=== PATIENT | female | born 1970 | race Caucasian/White ===

== ENCOUNTER 2021-11-30 00:36 | Day surgery (SDC) | payer BC, SELFPAY ==
[2021-11-23 11:55] VITALS: BMI 28.3
--- NOTE | 2021-11-23 12:02 | PC.NURSE ---
Report to the Outpatient Waiting Room, entrance under the green pavilion located off [facility], at time 0800 on date 11/30/21. OR Time: 1000. Time changes happen often and if your time is changed the preop area will call you the afternoon before. - You and your visitor will be asked to self-screen and do not enter if you have any COVID symptoms. - Only one visitor and NO children visitors are allowed at this time. - The patient visitor is requested to leave or wait in car when not with patient due to restrictions. - A mask is required within the hospital. Patients may have clear liquids (water, carbonated beverages, clear teas, apple juice) until 3 hours prior to surgery with a maximum of 20 ounces. - No food from midnight until time of surgery Take the following medications with a SIP of water the morning of surgery: NONE Medications to discontinue per physician: VITAMINS Date to take last dose: 11/26/21 Please no make-up, nail kazakh, hairspray, perfume, deodorant, or body powder the day of surgery. No jewelry (including any body piercings) or valuables the day of surgery, leave them at home. Please take a shower or bath the night before, or the morning of, surgery with an antibacterial soap. Wear comfortable, loose fitting clothing. - Jewelry must be removed prior to entering the operating room. Rings and piercings that are not removed may be cut off. - The hospital will not accept responsibility for valuables. - Please leave all valuables, including medications, at home the day of surgery. If you are going home after surgery, a licensed heavy truck driver must drive you home. - NO public transportation without another adult. - We recommend that an adult stay with you for 24 hours following discharge. - We also recommend that you do not drive, make important decision, drink alcoholic beverages, or take any drugs that were not prescribed by your health care provider for at least 24 hours after your discharge time. Follow any additional instructions given to you from your surgeon. If you or anyone in your household have experienced Covid symptoms in the past week, please notify your surgeon or the nurse liaison at the phone number below for possible testing. Telephone instructions given to PT - YONATAN PAULA and asked if any additional questions and then verbalized understanding. Patient advised to call surgeon office or pre surgery nurse liaison [phone] if any additional questions.
--- NOTE | 2021-11-29 12:34 | P.PNAN_ITS ---
Anes - Initial Pre Proc Eval Procedure: Operation Date: 11/30/21 10:00 Proposed Procedures p Hysteroscopy with Dee Endometrial Ablation, Laparoscopic Bilateral Salpingectomy, Left Oophorectomy - Nik Amezquita MD Date/Time: 11/29/21 12:34 Surgeon: Nik Amezquita MD Pre Op Diagnosis: menorrhagia Patient Data Age: 51 Gender: F Height: 1.6 m Weight: 72.57 kg Allergies Allergy/AdvReac Type Severity Reaction Status Date / Time Sulfa (Sulfonamide Allergy Mild HIVES Verified 11/30/21 08:00 Antibiotics) Home Medications Medication Instructions Recorded Confirmed Type multivitamin 1 tablet PO DAILY 11/23/21 11/30/21 History Patient hx anesthesia problems: none Family hx anesthesia problems: none Results Review: All pre-operative results and documents have been reviewed as part of the pre- operative evaluation. [facility] Past Medical History Medical History (Updated 11/29/21 @ 12:35 by Aneudy Jerome MD) Overweight (BMI 25.0-29.9) Social History Social History Smoking status: Never smoker Alcohol intake: current Drinks per week: 2 Substance use: never Substance use type: does not use Living arrangements: with family Spiritual care concerns: No Anes - Eval Final PreProcedure Day of Procedure 11/29/21 12:34 Patient weight: overweight Heart: regular rate and rhythm Lungs: clear to auscultation and normal air movement Airway: Mallampati scale class II Neurological: alert and oriented Last oral intake: >/= 8 hours ASA classification: II Emergent: no Anesthetic plan: proceed Anesthesia type and monitoring: general ETT Results Review: All pre-operative results and documents have been reviewed as part of the pre- operative evaluation. Informed Consent: The patient's anesthetic plan and its attendant risks and benefits were discussed with the patient/family/POA. Questions were solicited and answers provided to the satisfaction of the patient/family/POA.
[2021-11-30] VITALS (11 sets, daily range): BP systolic 100–127; BP diastolic 46–75; PULSE 53–70; RESP 12–18; TEMP 36.2–36.3; O2SAT 94–100
[2021-11-30] MEDS: ACETAMINOPHEN 500 MG TABLET 1000 MG PO (08:21)
[2021-11-30] MEDS: LACTATED RINGERS 1,000 ML 30 ML IV CONT ×2 (08:25→11:10)
[2021-11-30] MEDS: KETOROLAC 15 MG/ML VIAL (*BKC) IV PUSH (08:30)
--- NOTE | 2021-11-30 09:14 | WPDHPUPDATE1 ---
History and Physical Update Update Date/Time: 11/30/21 09:14 History and Physical has been reviewed, including an updated exam of the patient. There are NO changes in the patient's condition. Risks, benefits, and alternatives have been discussed and questions answered. Patient agrees to proceed with procedure.
--- NOTE | 2021-11-30 11:22 | W.PM.PROC2 ---
Procedure Note - Detailed Date of Procedure 11/30/21 Pre-op Diagnosis menorrhagia , pelvic pain Post-op Diagnosis Same Procedure Performed laparoscopic left oophorectomy and bilateral salpingectomy, excision peritoneal nodule of the pelvis. Endometrial ablation with hysteroscopy Surgeon Nik Amezquita MD Anesthesia General Indications Unwanted fertility Findings Normal pelvic anatomy Description of Procedure The patient was taken the operating room. She was prepped and draped in the dorsal lithotomy position after induction of general anesthesia. A 5 mm skin incision was made in the left upper quadrant of the abdominal skin. A 5 mm trocar was inserted the intra-abdominal cavity under direct visualization of the scope. Pneumoperitoneum was achieved. A 5 mm trocar was inserted in the left lower quadrant identical fashion. A 5 mm infraumbilical trocar was inserted in identical fashion as well. The right fallopian tube was removed. This was done by using a LigaSure cautery. The mesosalpinx adjacent to the tube was cauterized transected with LigaSure. This was initiated in the area the ovary and in a stepwise fashion moved medially to the area of the cornu of the uterus. Once there the fallopian tube was cauterized and transected. The left ovary fallopian tube were removed. It was raised and the infundibulopelvic ligament was identified. It was cauterized transected with LigaSure cautery. The mesosalpinx was then cauterized transected in stepwise fashion around to the cornua of the uterus. The fallopian tube was then transected and cauterized at its base Near the cornu of the uterus. The fallopian tubes And ovary were taken out through the left lower quadrant trocar site. A peritoneal nodule on the left uterosacral ligament was removed. It was done with sharp dissection and cautery. The ureter was well away from this area. The pneumoperitoneum was reduced. The trocars removed. The skin was closed with subcuticular 4 Monocryl and covered with Dermabond. Attention was turned to the vaginal portion of the procedure. A speculum was placed the vagina. Cervix grasped with a tenaculum. The hysteroscope was inserted into the intrauterine cavity to the cervix. Measurements were taken. The Endometrial cavity appeared normal. the Dee endometrial ablation device was inserted expanded. The cuff was Inflated. The energy cycles were completed. The cuff was deflated and the device was collapsed and removed. Hysteroscope was reinserted a well cauterized endometrium was observed. Speculum and tenaculum removed. She was taken to cover stable condition. Sponge lap and needle counts were correct x2. Estimated Blood Loss -10.0 Drains No Packing No Pathology Yes Complications No immediate complications Condition Stable Disposition PACU
[2021-11-30] MEDS: fentaNYL CITRATE INJ (*CRX) 100 MCG/2 ML VIAL 25 MCG IV PUSH ×8 (11:25→13:38)
[2021-11-30] MEDS: oxyCODONE HCL (*CRX) 5 MG TAB IR PO (13:12)
== END 2021-11-30 14:20 | disposition home or self-care (01) ==
PROVIDERS: Visit Provider Obstetrics & Gynecology
PROC: 0UDB8ZZ Extraction of Endometrium, Via Natural or Artificial Opening Endoscopic (ICD-10-PCS; CPT 58558; principal; 2021-11-30 10:00)
DX: N92.0 Excessive and frequent menstruation with regular cycle (principal); R10.2 Pelvic and perineal pain; N80.3C2 Endometriosis of the left uterosacral ligament, unspecified depth
CPT/HCPCS: 58661; 58662; 58563; 88304; 88305; A9270; J1100; J1170; J1885; J2250; J2405; J2704; J2710; J3010; J7030; J7120

== ENCOUNTER 2024-09-22 17:50 | Emergency (ER) | payer BC, SELFPAY ==
--- NOTE | 2024-09-22 17:52 | ED_ITS ---
HPI - Dental/Oral General Chief complaint: Dental/Oral Stated complaint: tooth ache Time Seen by Provider: 09/22/24 17:51 Source: patient Mode of arrival: ambulatory Limitations: no limitations History of Present Illness HPI Narrative: Patient is a 54-year-old female presents with left lower dental pain since Monday evening. Patient went to ER yesterday and was prescribed amoxicillin and tramadol. Patient states tramadol is not touching her pain. Denies any fever, chills, nausea, vomiting, diarrhea. States she will call our dentist 1st thing in the morning Related Data Home Medications ?Medication ?Instructions ?Recorded ?Confirmed ?Last Taken ?Type multivitamin 1 tablet PO DAILY 11/23/21 11/30/21 11/26/21 History amoxicillin 500 mg capsule mg 09/22/24 Unknown History progesterone micronized 100 mg mg 09/22/24 Unknown History capsule sertraline 50 mg tablet mg 09/22/24 Unknown History tramadol 50 mg tablet mg 09/22/24 Unknown History Allergies Allergy/AdvReac Type Severity Reaction Status Date / Time Sulfa (Sulfonamide Allergy Mild HIVES Verified 09/22/24 18:00 Antibiotics) Review of Systems Review of Systems: All systems reviewed & are unremarkable except as noted in HPI and below Constitutional: Constitutional: Denies body ache(s), Denies fever(s), Denies headache(s), Denies malaise and Denies weakness Eyes: Eyes: Denies loss of vision ENT: Denies otalgia, Reports facial pain (jaw), Denies headache(s), Denies nasal discharge, Denies sinus pain and Denies sore throat Cardiovascular: Cardiovascular: Denies chest pain, Denies irregular heart rhythm and Denies dyspnea Respiratory: Respiratory: Denies dyspnea Gastrointestinal: Gastrointestinal: Denies abdominal pain, Denies melena, Denies hematochezia, Denies diarrhea, Denies nausea and Denies vomiting Musculoskeletal: Musculoskeletal: Denies back pain, Denies myalgias and Denies arthralgias Integumentary/Breasts: Skin/Breast: Denies pruritus and Denies rash Neurologic: Denies headache(s), Denies loss of vision and Denies weakness Psychiatric: Psychiatric: Reports no additional psychiatric complaints PMFSH Past Medical History Medical History Overweight (BMI 25.0-29.9) Social History Social History Smoking status: Never smoker Alcohol intake: current Drinks per week: 2 Substance use: never Substance use type: does not use Living arrangements: with family Spiritual care concerns: No Comments At time of signature, agree with nursing past medical, surgical, social and family history. There is no relevant family history pertinent to the presenting complaint. Exam Const: General: cooperative, healthy appearing, comfortable, no acute distress and well nourished Nutritional Appearance: well nourished Orientation/consciousness: patient oriented x3 Limitations: no limitations HENMT: Head: normal to inspection, normocephalic and atraumatic Ears: hearing grossly normal bilaterally, external ears normal, TM's normal bilaterally and mastoids normal bilaterally Face/Nose/Sinus: Normal external nose present, normal facial exam and face symmetric Face and sinus: normal facial exam and face symmetric Mouth: Yes Normal oral and palatal mucosa present, Yes lip normal, Yes tongue normal, Yes Normal salivary glands and ducts present and Yes moist mucous membranes Teeth and gingiva: dentition normal and abnormal tooth and associated gingiva lower left second molar tender and with associated gingival edema Other: The tooth in question is very carious and the gum is swollen and tender around it. There is no facial swelling, cervical or submandibular lymphadenopathy. The patient appears uncomfortable and in pain. Eyes: General: appearance normal, both eyes and all related structures Alignment and Position: alignment normal and position normal Periorbital: periorbital findings normal Eyelids: eyelids normal Pupils: Equal, round and reactive pupils present EOM: EOMs intact bilaterally Neck: Neck: normal visual inspection, full ROM, no lymphadenopathy and supple Chest: Chest palpation & inspection: normal inspection of the chest Resp: Effort & Inspection: normal respiratory effort and able to speak in complete sentences Auscultation: clear to auscultation bilaterally Cardio: Rate: regular rate Rhythm: regular rhythm Heart sounds: S1 normal heart sound present and S2 normal heart sound present GI: Inspection: normal to inspection Skin: General skin exam: normal color and no rashes or lesions noted Neuro: General: patient oriented x3 and moves all extremities Cranial nerves: Yes Equal, round and reactive pupils present Speech: normal speech Gait exam (Neuro): Normal gait present Extrem: General: normal to inspection, full ROM and no edema Psych: Appearance: grossly normal and well kempt Mental Status: mental status grossly normal Speech and movement: Normal speech and movement present Affect: normal affect Attitude: cooperative Thought process: Normal thought process present Course Course Emergency Course: Patient is aware of diagnosis, understands and agrees to treatment plan. Anticipatory guidance given. Patient agrees to follow-up as directed and is aware of reasons to seek care at the emergency department. Portions of this record may have been created with voice recognition software Level of Care: Express Care Visit Vital Signs Vital signs: Reviewed MDM - Dental/Oral MDM Narrative Medical decision making narrative: Patients pain and complaint coupled with physical findings are consistant with dentalgia. There are no focal signs of space occupying lesions that are compromising to the airway; no dysphagia, odynophagia, dysphonia, or dyspnea. No uvular deviation or soft palate edema. Patient is non-toxic appearing. The floor of the mouth is soft with no signs of Chase's Angina; no induration below mandible, no neck pain. Patient is without trismus or drooling and able to swallow secretions. Patient is felt appropriate for discharge home with dental follow up. Patient given Toradol injection instructed to continue taking antibiotics and pain medicine that was previously prescribed Differential Diagnosis Differential diagnosis: Likely dental caries, toothache and dental abscess Medical Records Attestation: I reviewed the patient's medical records. Discharge Plan Discharge Clinical Impression: Dental abscess Patient Disposition: Home Condition: Stable Instructions: Dental Abscess (ED) Additional Instructions: Take previously prescribed antibiotic until it's gone. Continue taking tramadol as you were prescribed Brushing teeth at least twice daily with gentle flossing. Avoid temperature extremes---when you eat. Salt gargle to rinse your mouth after every meal You may apply ice to the face to reduce pain/swelling. For pain, you may take: Tylenol 650-1000mg by mouth every 4-6 hours. Do not exceed 4000mg in 24 hours. Advil (Ibuprofen) 600 mg by mouth every 6 hours. Do not exceed 2400mg in 24 hours. 8 AM: Tylenol 11 AM: Ibuprofen 2 PM: Tylenol 5 PM: Ibuprofen 8 PM: Tylenol 11 PM: Ibuprofen 2 AM: Tylenol 5 AM: Ibuprofen Also, recommend regular dental check up one-two times a year to prevent tooth decay and other periodontal disease. Follow-up with the dentist as soon as possible--see the list provided Patient Language: Urdu Prescriptions: No Action multivitamin Tablet 1 tablet PO DAILY hydrocodone-acetaminophen 5-325 mg tablet 1 tablet PO Q4H PRN (Reason: pain) Qty: 14 0RF Follow-up/Referrals: David,MD Vasu [Primary Care Provider] - 3 Days Stand Alone Forms: Work/School Release IP Time of Disposition: 18:12
--- OUTSIDE RECORDS SUMMARY | 2024-09-22 17:53 | XMS_ITS | Encounter Summary ---
Author Organization [facility] Address [facility] [place] [address] Care Team Providers Care Rate Examiner Name Role Phone Nelda Roth EQUIPMENT TECHNICIAN-BC Unavailable + [phone] Vasu Hernandez MD Primary Care Provider [phone] Encounter Details Date Type Department Care Team (Latest Contact Info) Description 09/21/2024 Travel Social History Tobacco Use Types Packs/Day Years Used Date Smoking Tobacco: Never Passive Smoke Exposure: Never Smokeless Tobacco: Never Comments:non smoker Alcohol Use Standard Drinks/Week Comments Yes 3.3 (1 standard drink = 0.6 oz p ure alcohol) Social Connection and Isolat ion Panel [NHANES] Answer Date Recorded In a typical week, how many times do you talk on the phone with family, friends, or neighbors? More than three times a week 11/05/2019 Frequency of Social Gatherin gs with Friends and Family Not on file 11/05/2019 Attends [employer] Services Not on file 11/04 Active Member of Clubs or Organizations Not on f ile 11/05/2019 Attends Club or Organization Meetings Not on manuel e 11/05/2019 Marital Status Not on file 11/05/2019 AUDIT-C Answer Date Recorded Q1: How often do you have a drink containing alc ohol? 2-4 times a month 04/09/2020 Q2: How many drinks containi ng alcohol do you have on a typical day when you are drinking? 1 or 2 04/09/2020 Frequency of Binge Drinking Not on file 03/30 Overall Financial Resource Strain (CARDIA) Answe r Date Recorded How hard is it for you to pa y for the very basics like food, housing, medical care, and heating? Not hard at all 11/05/2019 PHQ-2 Answer Date Recorded Patient Health Questionnaire-2 Score 0 03/06/2024 [facility]at [facility] - Occupational Stress Questionnaire Answer Date Recorded Do you feel stress - tense, restless, nervous, or anxious, or unable to sleep at night because your mind is troubled all the time - these days? Not at all 11/05/2019 Exercise Vital Sign Answer Date Recorde d On average, how many days pe r week do you engage in moderate to strenuous exercise (like a brisk walk)? 5 days 11/05/2019 On average, how many minutes do you engage in exercise at this level? 30 min 11/05/2019 Hunger Vital Sign Answer Date Recorded Within the past 12 months, y ou worried that your food would run out before you got the money to buy more. Never true 11/05/19 20 Within the past 12 months, t he food you bought just didn't last and you didn't have money to get more. Never true 11/05/2019 PRAPARE - Transportation Answer Date Re corded In the past 12 months, has l ack of transportation kept you from medical appointments or from getting medications? No 09/2019 In the past 12 months, has l ack of transportation kept you from meetings, work, or from getting things needed for daily living? No 11/05/2019 Comments No Sex and Gender Information Value Date Recorded Sex Assigned at Female 04/26/2024 11:53 AM CIGARETTE PAPER TESTER Legal Sex Female 6:49 PM CDT Gender Identity Not on file Sexual Orientation Straight 04/07/2021 8: 35 AM CIGARETTE PAPER TESTER documented as of this encounter Functional Status * Calculated C-SSRS Risk Score (Lifetime/Recent) Answer Date of Assessment Author Status No Risk Indicated 09/21/2024 11:14 PM CDT Dixon Aceves RN Active * [place] Suicide Severity Rating Scale (Screener/Recent Self-Report) Question Answer Date of Assessment Author Status 1. Wish to be (Past 1 Month) No 09/21/2024 11:14 PM CDT Viktoriya Aceves RN A ctive 2. Non-Specific Active Suicidal Thoughts (Past 1 Month) No 09/21/2024 11:14 PM CDT Viktoriya Aceves RN A ctive 6. Suicidal Behavior (Lifetime) No 09/21/2024 11:14 PM CDT Viktoriya Aceves RN A ctive documented as of this encounter Plan of Treatment Upcoming Encounters Date Type Department Care Team (Late st Contact Info) Description 11/18/2024 7:00 AM CDT Office Visit [facility] Family & Internal Medicine [facility] [address] [place] [address] [place] [address] [id number] documented as of this encounter Visit Diagnoses Not on filedocumented in this encounter Additional Health Concerns Assessment Noted Time PHQ-9 Depression Total Score: 0 03/06/19 25 12:11 PM CIGARETTE PAPER TESTER documented as of this encounter Care Teams Rate Examiner Relationship Specialty [place] [address] [phone] PCP - General INTERNAL MEDICINE 12/07/23 Nelda Roth NP- [address] [place] [address] Nurse Practitioner NURSE PRACTITIONER 04/09/20 documented as of this encounter
--- OUTSIDE RECORDS SUMMARY | 2024-09-22 17:53 | XMS_ITS ---
Author Organization [facility] Address [address] [place], [place] [id number] Care Team Providers Care Brain Wave Technician Name Role Phone RYAN KAISER Unavailable [phone] REASON FOR VISIT work Encounters Encounter Location Date Provider Diagnosis [facility] [address] [facility] [address] [place], [place] [id number] 10/16/2023 K[facility]ISER DAVIS Plan Of Treatment No Information Progress Notes * Jeannette PAULADOB:[birth year] (54 yo F)Acc No.[id number]:10/16/2023 Progress Notes Patient: Jeannette MCGILL Provider: Tawnya DAVIS :1970 A ge:53 Y S ex:Female Date:10/16/2023 Address:[address] [place], [place] [id number] Subjective: * Chief Complaints: * 1 . Work. * Medical History: Objective: * Vitals: Assessment: Plan: * Treatment: * Billing Information: * Visit Code: * Procedure Codes: * Electronic signature of DEVIKA DAVIS DPM on 09/22/2024 at 05:53 PM CDT Sign off status: Pending * Provider: Tawnya DAVIS Date: 10/16/2023 Generated for Ja gutierrez/Juan/Hussein on: 09/22/2024 05:53 PM CDT
--- OUTSIDE RECORDS SUMMARY | 2024-09-22 17:53 | XMS_ITS | Encounter Summary ---
Author Organization [facility] Address [address] [place] [address] Care Team Providers Care Multimedia Editor Name Role Phone Nelda Roth CLOTH EXAMINER MACHINE-BC Unavailable + [phone] Vasu Hernandez MD Primary Care Provider [phone] Encounter Details Date Type Department Care Team (Late st Contact Info) Description 07/02/2024 [facility] Patient Accounts [address] [place], [place] [phone] [facility] Auto Payment Cc Expiring Soon Social History Tobacco Use Types Packs/Day Years [...] and Family Not on file 11/05/2019 Attends Religion Services Not on file 11/04 Active Member [...] Recorded Patient Health Questionnaire-2 Score 0 03/06/2024 [facility] [place] of Occupat ional Health - Occupational Stress Questionnaire Answer Date Recorded [...] Sex Assigned at Female 04/26/2024 11:53 AM CARE DIRECTOR Legal Sex Female 6:49 PM CDT Gender Identity Not on file Sexual Orientation Straight 04/07/2021 8: 35 AM CARE DIRECTOR documented as of this encounter Plan of Treatment Upcoming Encounters Date Type Department Care Team (Late st Contact Info) Description 11/18/2024 7:00 AM CDT Office Visit [facility] Family & Internal Medicine [facility] [address] [place] [phone] [place] [address] [facility] [address] [place] [address] documented as of this encounter Visit Diagnoses Not on filedocumented in this encounter Additional Health Concerns Assessment Noted Time PHQ-9 Depression Total Score: 0 03/06/19 25 12:11 PM CARE DIRECTOR documented as of this encounter Care Teams Multimedia Editor Relationship Specialty [place] [address] [address] PCP - General INTERNAL MEDICINE 12/07/23 Nelda Roth NP- [address] [place] [id number] Nurse Practitioner NURSE PRACTITIONER 04/09/20 documented as of this encounter
--- OUTSIDE RECORDS SUMMARY | 2024-09-22 17:54 | XMS_ITS | Patient Health Record ---
Author Organization [facility] Address [address] [facility] [address] [place], [place] [phone] Care Team Providers Care Tassel Clipper Name Role Phone KAISER DAVIS Unavailable [phone] Reason For Referral No Information Plan Of Treatment No Information
--- OUTSIDE RECORDS SUMMARY | 2024-09-22 17:54 | XMS_ITS | Encounter Summary ---
Author Organization [facility] Address [facility] [place] [address] Care Team Providers Care Cider Press Operator Name Role Phone Nelda Roth METAL STAMPER- Unavailable + [phone] Marium Pantoja NP Primary Care Provider + [phone] Vasu Hernandez MD Primary Care Provider [phone] Encounter Details Date Type Department Care Team ([facility] Contact Info) Description 06/16/2023 DB Networkst Message Enc [facility] Family & Internal Medicine [address] [address] Marium Pantoja NP [address] [place] [address] [address] [address] mammogram & pulmonary function Social History Tobacco Use Types Packs/Day Years Used Date Smoking Tobacco: Never Passive Smoke Exposure: Never Smokeless Tobacco: Never Comments:non smoker Alcohol Use Standard Drinks/Week Comments Yes 0 (1 standard drink = 0.6 oz pur e alcohol) Socially Social Connection and Isolat ion Panel [NHANES] Answer Date Recorded In a typical week, how many times do you talk on the phone with family, friends, or neighbors? More than three times a week 11/05/2019 Frequency of Social Gatherin gs with Friends and Family Not on file 11/05/2019 Attends Evangelical Services Not on file 11/04 Active Member [...] Date Recorded Patient Health Questionnaire-2 Score 0 05/15/2023 [facility] - Occupational Stress Questionnaire Answer Date Recorded [...] Sex Assigned at Female 04/26/2024 11:53 AM ELECTRICAL RESEARCH ENGINEER Legal Sex Female 6:49 PM CDT Gender Identity Not on file Sexual Orientation Straight 04/07/2021 8: 35 AM ELECTRICAL RESEARCH ENGINEER documented as of this encounter Plan of Treatment Upcoming Encounters Date Type Department Care Team (Late st Contact Info) Description 11/18/2024 7:00 AM CDT Office Visit [facility] Family & Internal Medicine [facility] [address] [place] [address] [place] [address] [facility] [address] [place] [address] documented as of this encounter Visit Diagnoses Not on filedocumented in this encounter Additional Health Concerns Assessment Noted Time PHQ-9 Depression Total Score: 0 03/25/19 9:54 AM ELECTRICAL RESEARCH ENGINEER documented as of this encounter Care Teams Cider Press Operator Relationship Specialty Start [place] [address] [facility] [address] [facility] [place] [address] PCP - General Nurse Practitioner Family 04/18/23 12/06/23 [place] [address] [facility] [address] [place] [address] PCP - General INTERNAL MEDICINE 12/07/23 Nelda Roth NP- [address] [place] [address] Nurse Practitioner NURSE PRACTITIONER 04/09/20 documented as of this encounter
--- OUTSIDE RECORDS SUMMARY | 2024-09-22 17:54 | XMS_ITS | Encounter Summary ---
Author Organization [facility] Address [facility] [place] [address] Care Team Providers Care Woodyard Crane Operator Name Role Phone Nelda Roth SWAGING MACHINE ADJUSTER-BC Unavailable + [phone] Vasu Hernandez MD Primary Care Provider [phone] Encounter Details Date Type Department Care Team ([facility] Contact Info) Description 02/23/2024 MyCBackTypet Message Enc [facility] Family & Internal Medicine [address] [address] [place] [address] [address] Sertraline Social History Tobacco Use Types Packs/Day Years Used Date Smoking Tobacco: Never Passive Smoke Exposure: Never Smokeless Tobacco: Never Comments:non smoker Alcohol Use Standard Drinks/Week Comments Yes 3.3 (1 standard drink = 0.6 oz p ure alcohol) Socially Social Connection and Isolat ion Panel [NHANES] Answer Date Recorded In a typical week, how many times do you talk on the phone with family, friends, or neighbors? More than three times a week 11/05/2019 Frequency of Social Gatherin gs with Friends and Family Not on file 11/05/2019 Attends Roman Catholic Services Not on file 11/04 Active Member [...] Answer Date Recorded Patient Health Questionnaire-2 Score 1 01/18/2024 [facility] ional [facility] - Occupational Stress [...] Sex Assigned at Female 04/26/2024 11:53 AM OFFSET PROOF PRESS OPERATOR Legal Sex Female 6:49 PM CDT Gender Identity Not on file Sexual Orientation Straight 04/07/2021 8: 35 AM OFFSET PROOF PRESS OPERATOR documented as of this encounter Progress Notes * Mora Brandt RN - 02/27/2024 11:43 AM CST Should patient resume medication? Possible dosage change etc? ET PROOF PRESS OPERATOR * Mora Brandt RN - 02/23/2024 12:18 PM CST Please advise. ET PROOF PRESS OPERATOR documented in this encounter Plan of Treatment Upcoming Encounters Date Type Department Care Team (Late st Contact Info) Description 11/18/2024 7:00 AM CDT Office Visit [facility] Family & Internal Medicine [address] [address] Vasu Hernandez MD [address] [place] [address] documented as of this encounter Visit Diagnoses Not on filedocumented in this encounter Additional Health Concerns Assessment Noted Time PHQ-9 Depression Total Score: 2 01/18/20 24 7:05 AM OFFSET PROOF PRESS OPERATOR documented as of this encounter Care Teams Woodyard Crane Operator Relationship Specialty Start Date End Date Vasu Hernandez MD [address] [place] [address] PCP - General INTERNAL MEDICINE 12/07/23 Nelda Roth NP- [address] [place] [address] Nurse Practitioner NURSE PRACTITIONER 04/09/20 documented as of this encounter
--- OUTSIDE RECORDS SUMMARY | 2024-09-22 17:54 | XMS_ITS | Encounter Summary ---
Author Organization [facility] Address [facility] [place] [address] Care Team Providers Care Adult School Teacher Name Role Phone Nelda Roth LAW FIRM PARTNER-BC Unavailable [phone] Vasu Hernandez MD Primary Care Provider [phone] Encounter Details Date Type Department Care Team (Late st Contact Info) Description 09/21/2024 11:00 PM CDT - 09/22/2024 12:34 AM CDT Emergency [facility] Emergency Room [address] [place] [address] Rod Vargas MD [address] [place] [address] Discharge Disposition: Home or Self Care (Routine Discharge) Social History Tobacco Use Types Packs/Day Years [...] and Family Not on file 11/05/2019 Attends Mormonism Services Not on file 11/04 Active Member [...] Recorded Patient Health Questionnaire-2 Score 0 03/06/2024 [facility] Occupat ional Health - Occupational Stress [...] Sex Assigned at Female 04/26/2024 11:53 AM PLANT CHANGER Legal Sex Female 6:49 PM CDT Gender Identity Not on file Sexual Orientation Straight 04/07/2021 8: 35 AM PLANT CHANGER documented as of this encounter Last Filed Vital Signs Vital Sign Reading Time Taken Comments Blood Pressure 135/63 09/21/2024 11:10 PM CDT Pulse 71 09/21/2024 11:10 PM CDT Temperature 36.3 C (97.3 F) 09/21/2024 11:10 PM CDT Respiratory Rate 20 09/21/2024 11:10 PM CDT Oxygen Saturation 100% 09/21/2024 11:10 PM CDT Inhaled Oxygen Concentration - - Weight 74.8 kg (165 lb) 09/21/2024 11:10 PM CDT Height 162.6 cm (5' 4) 09/21/2024 11:10 PM CDT Body Mass Index 28.32 09/21/2024 11:10 PM CDT documented in this encounter Functional Status * Calculated C-SSRS Risk Score (Lifetime/Recent) Answer Date of Assessment Author Status No Risk Indicated 09/21/2024 11:14 PM CDT Dixon Aceves RN Active * [place] Suicide Severity Rating Scale (Screener/Recent Self-Report) Question [...] A ctive documented as of this encounter Discharge Instructions * Discharge Instructions* Rod Vargas MD - 09/21/2024 11:35 PM CDT Please take all medications as prescribed. Please call your primary care physician to arrange for follow-up appointment within 5 days. Please return to the ED with any concerns. * Attachments The following attachments cannot be sent through Care Everywhere. * Dental pain ??? ED discharge instructions (Peruvian) documented in this encounter Medications at Time of Discharge amoxicillin (AMOXIL) 500 MG capsule Take 1 capsule (500 mg total) by mouth 3 (three) times daily for 10 days. 30 capsule 09/21/2024 clotrimazole (LOTRIMIN) 1 % creamIndications :Angular cheilosis Apply topically 2 (two) times daily. 42 g 07/18/2024 Multiple Vitamins-Mineral s (MULTIVITAMIN ADULT OR) Take by mouth daily. progesterone (PROMETRIUM) 100 MG capsule Take 1 capsule (100 mg total) by mouth nightly at bedtime. at bedtime. 04/03/2024 sertraline (ZOLOFT) 50 MG tabletIndication s:Anxiety associated with depression Take 1 tablet (50 mg total) by mouth daily. 90 tablet 1 08/02/2024 traMADol (ULTRAM) 50 MG tabletIndication s:Acute Pain < 7 Day Supply Take 1 tablet (50 mg total) by mouth every 6 (six) hours as needed for Pain. Indications: Acute Pain < 7 Day Supply 20 tablet 09/21/2024 documented as of this encounter ED Notes * Viktoriya Aceves RN - 09/21/2024 11:07 PM CDT Pt arrives from home via POV with CC of left jaw and cheek pain for two days. Believes the pain is originating from left lower dental pain. Rates pain 8/10, described as throbbing and sharp. She is able to see her dentist on Monday but cannot handle the pain at this time. documented in this encounter Plan of Treatment Upcoming Encounters Date Type Department Care Team (Late st Contact Info) Description 11/18/2024 7:00 AM CDT Office Visit [facility] Family & Internal Medicine [facility] [address] [place] [address] [place] [address] [facility] [address] [place] [address] documented as of this encounter Visit Diagnoses Diagnosis Toothache- Primary Unspecified disorder of the teeth and supporting structures documented in this encounter Administered Medications Inactive Administered Medications - up to 3 most recent administrations Medication Order MAR Action Action Date Dose Rate Site amoxicillin (AMOXIL) capsule 500 mg 500 mg, Oral, Once, 1 dose, On 09/21/24 at 2345 Given 09/21/2024 11:48 PM CDT 500 mg ketorolac (TORADOL) injection 60 mg 60 mg, Intramuscular, Once, 1 dose, On 09/21/24 at 2345 Given 09/21/2024 11:46 PM CDT 60 mg Left Dorsal Gluteal documented in this encounter Active and Recently Administered Medications Times are shown in CDT. Scheduled Medication Order 09/20/2024 09/21/2024 09/22/2024 amoxicillin (AMOXIL) capsule 500 mg (COMPLETED) 500 mg, Oral, Once, 1 dose, On 09/21/24 at 2345 2348 (Given - Provider: Tari Aceves RN) ketorolac (TORADOL) injection 60 mg (COMPLETED) 60 mg, Intramuscular, Once, 1 dose, On 09/21/24 at 2345 2346 (Given - Provider: Tari Aceves RN) documented in this encounter Additional Health Concerns Assessment Noted Time PHQ-9 Depression Total Score: 0 03/06/19 25 12:11 PM PLANT CHANGER documented as of this encounter Care Teams Adult School Teacher Relationship Specialty [place] [address] [address] PCP - General INTERNAL MEDICINE 12/07/23 Nelda Roth NP-ALYSSA [address] [place] [address] Nurse Practitioner NURSE PRACTITIONER 04/09/20 documented as of this encounter
--- OUTSIDE RECORDS SUMMARY | 2024-09-22 17:54 | XMS_ITS | Encounter Summary ---
Author Organization [facility] Address [address] [place] [address] Care Team Providers Care In Tube Conversion Technician Name Role Phone Nelda Roth PROPOSITION PLAYER- Unavailable + [phone] Shazia Martinez Primary Care Provider + [phone] Delia Nance DISPLAYER MERCHANDISE- Primary Care Provider + Marium Pantoja NP Primary Care Provider + [phone] Vasu Hernandez MD Primary Care Provider [phone] Encounter Details Date Type Department Care Team (Late st Contact Info) Description 04/14/[address] [facility] Patient Accounts [address] [place] [address] [facility] Provider ACTION REQUIRED Social History Tobacco Use Types Packs/Day Years Used Date Smoking Tobacco: Never Smokeless Tobacco: Never Comments:non smoker Alcohol [...] and Family Not on file 11/05/2019 Attends Sabianist Services Not on file 11/04 Active Member [...] Date Recorded Patient Health Questionnaire-2 Score 0 03/25/2022 [facility] Occupat ional Health - Occupational Stress [...] Sex Assigned at Female 04/26/2024 11:53 AM GRADUATE ASSISTANT Legal Sex Female 6:49 PM CDT Gender Identity Not on file Sexual Orientation Straight 04/07/2021 8: 35 AM GRADUATE ASSISTANT COVID-19 Exposure Response Date Recorded In the last 10 days, have yo u been in contact with someone who was confirmed or suspected to have Coronavirus/COVID-19? No / Unsure 03/25/2022 9:40 AM GRADUATE ASSISTANT documented as of this encounter Plan of Treatment Upcoming Encounters Date Type Department Care Team (Late st Contact Info) Description 11/18/2024 7:00 AM CDT Office Visit [facility] Family & Internal Medicine [facility] [address] [place] [address] [place] [address] [id number] documented as of this encounter Visit Diagnoses Not on filedocumented in this encounter Additional Health Concerns Infection Onset Date Last Indicated Resolved Time COVID-19 Rule Out 04/26/2023 04/26/2023 04/26/2023 2:17 PM GRADUATE ASSISTANT Influenza - Seasonal 04/26/2023 04/26/2023 024 12:32 AM GRADUATE ASSISTANT Assessment Noted Time PHQ-9 Depression Total Score: 0 03/25/19 23 9:54 AM GRADUATE ASSISTANT documented as of this encounter Care Teams In Tube Conversion Technician Relationship Specialty [place] [address] [place] [address] PCP - General PHYSICIAN SILK SCREEN REPAIRER 03/10/21 03/29/23 Delia Nance, DISPLAYER MERCHANDISE- [address] [place] [address] PCP - General Nurse Practitioner Family 03/30/23 04/17/23 Marium Pantoja, PROPOSITION PLAYER [address] [facility] [address] [place] [address] PCP - General Nurse Practitioner Family 04/18/23 12/06/23 [place] [address] [address] PCP - General INTERNAL MEDICINE 12/07/23 Nelda Roth NP- [address] [place] [address] Nurse Practitioner NURSE PRACTITIONER 04/09/20 documented as of this encounter
--- OUTSIDE RECORDS SUMMARY | 2024-09-22 17:54 | XMS_ITS | Encounter Summary ---
Author Organization [facility] Address [facility] [place] [address] Care Team Providers Care Die Technician Name Role Phone Nelda Roth SLAB GRINDER- Unavailable + [phone] Shazia Martinez Primary Care Provider + [phone] Delia Nance [facility]- Primary Care Provider + Marium Pantoja NP Primary Care Provider + [phone] Vasu Hernandez MD Primary Care Provider [phone] Encounter Details Date Type Department Care Team (Late st Contact Info) Description 04/09/2021 ethologyt Message Enc [facility] Family & Internal Medicine [facility] [address] [place] [address] [place] [address] [place] [address] CT scan Social History Tobacco Use Types Packs/Day Years Used Date Smoking Tobacco: Never Smokeless Tobacco: Never Alcohol Use Standard Drinks/Week Comments Yes 0 [...] and Family Not on file 11/05/2019 Attends Restorationist Services Not on file 11/04 Active Member [...] at all 11/05/2019 PHQ-2 Answer Date Recorded PHQ-2 Score - If the patient scores above 3, please move on to questions 3-9 0 03/23/2021 [facility] of Occupat ional Health - Occupational Stress [...] Sex Assigned at Female 04/26/2024 11:53 AM LEAN MANUFACTURING COORDINATOR Legal Sex Female 6:49 PM CDT Gender Identity Not on file Sexual Orientation Straight 04/07/2021 8: 35 AM LEAN MANUFACTURING COORDINATOR COVID-19 Exposure Response Date Recorded In the last 10 days, have yo u been in contact with someone who was confirmed or suspected to have Coronavirus/COVID-19? No / Unsure 04/07/2021 9:45 AM LEAN MANUFACTURING COORDINATOR documented as of this encounter Plan of Treatment Upcoming Encounters Date Type Department Care Team (Late st Contact Info) Description 11/18/2024 7:00 AM CDT Office Visit [facility] Group Family & Internal Medicine [facility] [address] [place] [address] [place] [address] [phone] documented as of this encounter Visit Diagnoses Not on filedocumented in this encounter Additional Health Concerns Infection Onset Date Last Indicated Resolved Time COVID-19 Rule Out 04/26/2023 04/26/2023 04/26/2023 2:17 PM LEAN MANUFACTURING COORDINATOR Influenza - Seasonal 04/26/2023 04/26/2023 024 12:32 AM LEAN MANUFACTURING COORDINATOR Assessment Noted Time PHQ-9 Depression Total Score: 0 03/23/19 22 8:57 AM LEAN MANUFACTURING COORDINATOR documented as of this encounter Care Teams Die Technician Relationship Specialty [place] [address] [place] [address] PCP - General PHYSICIAN EXPLOSIVE OPERATOR BOMB 03/10/21 03/29/23 Delia Nance, SLIP COVER OPERATOR- [address] [place] [address] PCP - General Nurse Practitioner Family 03/30/23 04/17/23 [place] [address] [facility] [address] [place] [address] PCP - General Nurse Practitioner Family 04/18/23 12/06/23 [place] [address] [facility] [address] [place] [address] PCP - General INTERNAL MEDICINE 12/07/23 Nelda Roth NP- [address] [place] [address] Nurse Practitioner NURSE PRACTITIONER 04/09/20 documented as of this encounter
--- OUTSIDE RECORDS SUMMARY | 2024-09-22 17:54 | XMS_ITS | Continuity of Care Document ---
Author Name [facility] Organization [facility] Care Team Providers Care Maintenance Groundman Name Role Phone [facility] Unavailable Unavailable Social History Combined list of available smoking, tobacco, and other social history from Department of Defense and Veterans Affairs facilities. Social History Type Response Date Comment Sourc e This section is an empty social history section. [facility]
--- OUTSIDE RECORDS SUMMARY | 2024-09-22 17:54 | XMS_ITS | Patient Health Record ---
Author Organization 1 OF Billy means [facility] Address [address] [place] [address] Care Team Providers Care Nurse Practical Name Role Phone UNKNOWN, UNKNOWN Primary Care Provider Unavailab Edu Leblanc Unavailable Alex Rock Unavailable [phone] Allergies Allergen (clinical drug ingredient) Drug/Non Drug Allergy documented on EMR Reaction Allergy Type Onset Date Status Substance with sulfonamide structure and antibacterial mechanism of action (substance) Sulfa Antibiotics Unknown Drug Allergy Active Reason For Referral No Information Medications Medication SIG (Take, Route, Frequency, Duration) Notes Start Date End Date Status Multivitamin Active Problems Problem Type SNOMED Code ICD Code Onset Dates Problem Status W/U Status Risk Notes Problem Localized, secondary osteoarthritis of the ankle and/or foot (285331797) Post-traumatic osteoarthritis of right foot (M19.171) Active confirmed Vital Signs Height 63 in 03/19/2024 Weight 152 lbs 03/19/2024 BMI 26.92 kg/m2 03/19/2024 Encounters Encounter Location Date Provider Diagnosis 1 OF Billy Fatima [facility] [address] [place] [address] 10/04/2023 Alex Rock Mallet toe of right foot M20.5X1 ; Post-traumatic osteoarthritis of right foot M19.171 and Toe pain, right M79.674 1 OF Billy Fatima [facility] [address] [place] [address] 12/05/2023 Edu Fatima Mallet toe of right foot M20.5X1 ; Post-traumatic osteoarthritis of right foot M19.171 and Toe pain, right M79.674 [facility] [address] [facility] [place] [address] 01/04/2024 Edu Fatima Post-traumatic osteoarthritis of right foot M19.171 ; Mallet toe of right foot M20.5X1 and Post-op pain G89.18 1 OF Billy Rivera [facility] [address] [place] [address] 01/09/2024 Edu Fatima Mallet toe of right foot M20.5X1 ; Surgical aftercare, musculoskeletal system Z47.89 and Post-traumatic osteoarthritis of right foot M19.171 1 OF Miguel [facility] [address] [place] [address] 02/06/2024 Edu Fatima Mallet toe of right foot M20.5X1 ; Surgical aftercare, musculoskeletal system Z47.89 and Post-traumatic osteoarthritis of right foot M19.171 1 OF Miguel [place] [address] [place] [address] 03/19/2024 Edu Fatima Mallet toe of right foot M20.5X1 ; Surgical aftercare, musculoskeletal system Z47.89 and Post-traumatic osteoarthritis of right foot M19.171 1 OF [place] [address] [place] [address] 10/03/2023 Alex Rock 1 OF Billy Rivera [place] [address] [place] [address] 12/05/2023 Edu Fatima 1 OF [place] [address] [place] [address] 12/05/2023 Edu Fatima 1 OF [place] [address] [place] [address] 01/02/2024 Edu Fatima Assessments Encounter Date Diagnosis (ICD Code) Assessment Notes Treatment Notes Treatment Clinical Notes Section Notes 10/04/2023 Post-traumatic osteoarthritis of right foot (ICD-10 - M19.171) 10/04/2023 Mallet toe of right foot (ICD-10 - M20.5X1) 12/05/2023 Post-traumatic osteoarthritis of right foot (ICD-10 - M19.171) Discussed non surgical options such as gel cushion and injections. Also discussed surgical options. Patient desires surgery for permanent relief. Pt would like to have it at [facility] under IV sedation. Reviewed surgical plan consisting of: DIPJ arthrodesis RT 3rd toe with hammertoe implant. Reviewed potential risks and complications of foot and ankle surgery as noted on the consent form including infection, pain, chronic swelling, chronic pain, nerve damage, delayed healing, joint stiffness, CRPS, adverse reaction to anesthesia, suture or other implants, failure of the procedure(s) and/or recurrence of condition(s). No guarantees given. Specifically discussed the typical post-operative recovery period associated with the proposed procedures including, WB status, activity / employment restrictions and reminded patient of importance of compliance with post-operative instructions to reduce risk of complications and help insure optimal surgical outcome. Patient was given the surgical consent form to review and any questions were answered to the patient's satisfaction. The patient demonstrated understanding of the proposed procedure(s) and the above discussion and signed the Consent for Surgery form. Patient will be contacted with surgery date options. 12/05/2023 Mallet toe of right foot (ICD-10 - M20.5X1) 01/04/2024 Post-traumatic osteoarthritis of right foot (ICD-10 - M19.171) 01/04/2024 Mallet toe of right foot (ICD-10 - M20.5X1) 01/09/2024 Surgical aftercare, musculoskeletal system (ICD-10 - Z47.89) Post-op visit today consisting of exam, dressing change and review of post-op instructions. DRESSING: Leave primary dressing in place for one week and then may remove all but the steri-strips and if no drainage or gapping of incision patient advised no dressing necessary and may resume showering but no soaking of the foot. Clean incision daily with rubbing alcohol and let steri-strips fall off on their own. ACTIVITY: continue minimal activity with elevation of extremity as often as possible. Advised to periodically remove the Ruben wrap and re-wrap to maintain good compression. Continue periodic application of ice to the operative foot for at least one more week or as long as patient deems beneficial. WB STATUS: As tolerated OFFLOADING:in sx shoe 01/09/2024 Mallet toe of right foot (ICD-10 - M20.5X1) 02/06/2024 Mallet toe of right foot (ICD-10 - M20.5X1) 03/19/2024 Mallet toe of right foot (ICD-10 - M20.5X1) 03/19/2024 Surgical aftercare, musculoskeletal system (ICD-10 - Z47.89) Advised pt the swelling may take up to a year for the swelling to completely resolve. Continue with good supportive shoes. May begin normal activities. Follow up as needed. 02/06/2024 Surgical aftercare, musculoskeletal system (ICD-10 - Z47.89) Reviewed the physical exam findings and x-rays with the patient and advised there appears to be a little displacement of the distal phalanx but clinically the toe still appears to be in good position. Patient advised tenderness and swelling are normal at this stage and should gradually improve over time. At this point, the patient can transition from the surgical shoe to a tennis shoe and begin weight-bearing as tolerated. She can gradually ease into her activities, but high-impact activities should be avoided. I advised monitoring for any sudden increase in swelling or pain. I recommended applying lotion to the right 3rd toe Follow-up in 6 weeks (10 weeks post-op). 01/09/2024 Post-traumatic osteoarthritis of right foot (ICD-10 - M19.171) 01/04/2024 Post-op pain (ICD-10 - G89.18) 12/05/2023 Toe pain, right (ICD-10 - M79.674) 10/04/2023 Toe pain, right (ICD-10 - M79.674) 02/06/2024 Post-traumatic osteoarthritis of right foot (ICD-10 - M19.171) 03/19/2024 Post-traumatic osteoarthritis of right foot (ICD-10 - M19.171) 10/04/2023 Other I did examine a nd evaluate the patient today. X-rays were obtained and reviewed and I do believe that is what is occurring is that she has developed posttraumatic arthritis in this distal interphalangeal joint and now it is rigidly contracted plantarly and bearing more pressure on pushoff than the other digits which is irritating that joint. Other than wider and extra shoe gear and [id number] padding and anti-inflammatori es I did briefly discuss surgical treatment in the form of an arthroplasty in order to address the contracture. Patient states that the pain is not that bad at this point in time but she may opt for the surgery sometime this fall or early next year. At this point in time we will see her back in clinic on an as-needed basis Plan Of Treatment No Information Insurance Providers Payer Name Payer Address Payer Phone Subscriber Number Group Number Insured Name Patient Relationship to Insured Coverage Start Date Coverage End Date [facility] [address] [place] [address] [phone] [id number] Jeannette Jeong Self - patient is the insured [facility] Claims [address] [place] [address] [id number] Jeannette Jeong Self - patient is the insured [facility] Claims [address] [place] [address] [id number] Rell Jeong Spouse - patient is the spouse of the insured 4 Medical (General) History Medical History History ICD Code anemia
--- OUTSIDE RECORDS SUMMARY | 2024-09-22 17:54 | XMS_ITS | Clinical Summary ---
Author Organization [facility] Address [address] [place] [address] Care Team Providers Care Dehydrogenation Supervisor Name Role Phone Nelda Roth CHIEF STEWARD/STEWARDESS-BC Unavailable Vidal Cee MD Primary Care Provider [phone] Allergies Active Allergy Reactions Criticality Noted Date Comments Sulfa Antibiotics Hives,Other (see comment),Rash Low 02/01/2011 Substance with sulfonamide structure and antibacterial mechanism of action (substance) Medications Multiple Vitamins-Minera ls (MULTIVITAMIN ADULT OR) Take by mouth daily. Active progesterone (PROMETRIUM) 100 MG capsule Take 1 capsule (100 mg total) by mouth nightly at bedtime. at bedtime. 5 Active clotrimazole (LOTRIMIN) 1 % creamIndication s:Angular cheilosis Apply topically 2 (two) times daily. 42 g 5 Active sertraline (ZOLOFT) 50 MG tabletIndicatio ns:Anxiety associated with depression Take 1 tablet (50 mg total) by mouth daily. 90 tablet 1 5 Active amoxicillin (AMOXIL) 500 MG capsule Take 1 capsule (500 mg total) by mouth 3 (three) times daily for 10 days. 30 capsule 5 10/02/19 25 Active traMADol (ULTRAM) 50 MG tabletIndicatio ns:Acute Pain < 7 Day Supply Take 1 tablet (50 mg total) by mouth every 6 (six) hours as needed for Pain. 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 Anxiety associated with depression 07/18/2024 Assessment & Plan (07/18/2024 1:09 PM CDT): Better controlled with current medication of sertraline 50 mg daily No suicidal thoughts or weird dreams Breast disorder 10/24/2018 Overview (10/08/2022): Disorder of breast, unspecified;Recorded Elsewhere: No Location: [facility] Source: EHR Chronic: N Practice ID: [id number] Billable Time: 09:30:00 AM Atypical squamous cells of u ndetermined significance (ASCUS) on Papanicolaou smear of cervix 10/24/2018 Overview (10/08/2022): Atyp squam cell of undet signfc cyto smr crvx (ASC-US);Recorded Elsewhere: No Location: [facility] Source: EHR Chronic: N Practice ID: [id number] Billable Time: 09:30:00 AM Abnormal uterine bleeding 09/13/2016 Overview (10/08/2022): Other specified abnormal uterine and vaginal bleeding;Practice ID: [id number] Dyspareunia 06/20/2014 Overweight (BMI 25.0-29.9) 06/20/2014 Amenorrhea 05/18/2011 Overview (10/08/2022): Absence of menstruation;Recorded Elsewhere: No Location: [facility] Source: EHR Chronic: N Practice ID: [id number] Billable Time: 03:30:00 PM Resolved Problems Problem Noted Date Diagnosed Date Resolved Date Atypical squamous cells of u ndetermined significance (ASCUS) on Papanicolaou smear of cervix 10/24/2018 04/09/2020 Polyp of cervix 10/17/2017 04/09/2020 Dysmenorrhea 06/20/2014 08/03/2023 No known health problems 05/22/201312/2019 Encounters Date Type Department Care Team Description 09/21/2024 11:00 PM CDT - 09/22/2024 12:34 AM CDT Emergency [facility] Emergency Room [address] [place] [address] Rod Vargas MD Discharge Disposition: Home or Self Care (Routine Discharge) 09/21/2024 Travel 08/14/2024 12:11 PM CDT - 08/14/2024 11:59 PM CDT Hospital Encounter [facility] Diagnostic Imaging [address] [place] [address] Nicko Zaidi, CITLALI Discharge Disposition: Home or Self Care (Routine Discharge) 08/14/2024 Travel 08/13/2024 10:20 AM CDT Office Visit [facility] Family & Internal Medicine [address] [phone] Dinh Meraz PA Rib Pain (Pt c/o right side rib pain) 08/13/2024 Travel 07/18/2024 7:00 AM CDT Office Visit [facility] Family & Internal Medicine [address] [phone] Vidal Cee MD Mouth Sores 07/18/2024 Travel 07/02/2024 [facility] Patient Accounts [address] [place] [address] [facility] Cc Expiring Soon from Last 3 Months Immunizations Immunization Administration Dates Next Due Dtap (Generic) 07/21/1976,06/24/1974,1972 ,1972 Mumps (Generic) 08/05/1974 Polio Ipv (Generic) 09/30/1982,07/21/1976,1974,1972 Rubella (Generic) 12/03/1975 Td 09/15/1986,09/30/1982 Family History Medical History Relation Comments Hypertension Brother 1 Cancer Father Renal Cell Kidney Cancer Father Cancer Mother Lung Lung Cancer Mother smoker Miscarriages / Stillbirths Mother Breast Cancer Other Relation Status Comments Brother 1 Alive Brother 2 Alive Brother 3 Alive Father Maternal Grandmother Alive Mother Other Alive Social History Tobacco Use Types Packs/Day Years Used Date Smoking Tobacco: Never Passive Smoke Exposure: Never Smokeless Tobacco: Never Tobacco Cessation:Counseling Given: No Comments:non smoker Alcohol Use Standard Drinks/Week Comments [...] and Family Not on file 11/05/2019 Attends Synagogue Services Not on file 11/04 Active Member [...] Recorded Patient Health Questionnaire-2 Score 0 03/06/2024 [facility] Occup[facility] - Occupational Stress [...] Sex Assigned at Female 04/26/2024 11:53 AM HARNESS BUILDER Legal Sex Female 6:49 PM CDT Gender Identity Not on file Sexual Orientation Straight 04/07/2021 8: 35 AM HARNESS BUILDER Last Filed Vital Signs Vital Sign Reading [...] Mass Index 28.32 09/21/2024 11:10 PM CDT Plan of Treatment Upcoming Encounters Date Type Department Care Team (Late st Contact Info) Description 11/18/2024 7:00 AM CDT Office Visit [facility] Family & Internal Medicine [address] [phone] iVdal Cee MD [address] [place] [address] [place] [address] Health Maintenance Due Date Last Done Comments DTaP, Tdap and Td Vaccines (5 - Tdap) 09/16/1986 09/15/1986, 09/30/1982, 07/21/1976, Additional history exists Hepatitis B Vaccines (1 of 3 - 19+ 3-dose series) 01/27/1991 Pneumococcal Vaccine: 50+ Years (1 of 1 - PCV) 01/27/2022 Zoster Vaccines (1 of 2) 01/27/2022 COVID-19 Vaccine (2 - season) 2023 06/06/2020 Annual Physical 05/14/2024 05/15/2023 Mammogram Screening 2026 01/29/2024, 07/19/2023, 06/06/2023, Additional history exists Colorectal Cancer Screening Colonoscopy (10 Years) 11/04/2029 11/05/2019 Hepatitis C Completed 04/09/2020 PHQ-2 (Physician [place]) Completed 03/06/2024 Meningococcal B Vaccine Aged Out No l onger eligible based on patient's age to complete this topic Meningococcal Vaccine Aged Out No tonja preston eligible based on patient's age to complete this topic RSV Immunizations Under 20 Months Aged Out No longer eligible based on patient's age to complete this topic Medical Devices Implanted Type Area Mold Presser Device Identifier Shelf Expiration Date Model / Serial / Lot Hammerto Fixation System - Small Implanted:Qty: 1 on 01/04/2024 by Edu Fatima DPM at [facility] Right: Foot [employer] [id number] 01/30/2026 -20233 / / [id number] Procedures Procedure Name Priority Date/Time Associated Diagnosis Comments XR RIBS RT UNI Routine 08/14/2024 1:23 PM CDT Rib pain XR THOR SPINE 3V Routine 08/14/2024 1:23 PM CDT Pain in thoracic spine XR LUMB SP+OBL+FLEX+EXT 7V Routine 08/14/2024 1:23 PM CDT Low back pain XR CERV SP OBL+FLEX+EXT 7V Routine 08/14/2024 1:23 PM CDT Cervicalgia MG DIAG W KORIN LT DIGI Routine 01/29/2024 10:27 AM HARNESS BUILDER Abnormal mammogram HEPATITIS C ANTIBODY Routine 04/09/2020 1:45 PM HARNESS BUILDER Need for hepatitis C screening test from Last 3 Months or Most Recently Relevant to Health Maintenance Results * XR THOR SPINE 3V (08/14/2024 1:23 PM CDT) Anatomical Region Laterality Modality Spine Radiographic Tammy ging 08/19/2024 2:21 AM CDT Impressions 08/19/2024 2:23 AM CDT IMPRESSION: 1. No acute osseous abnormality identified. 2. Mild dextrocurvature of the thoracic spine. Referred By: Interpreted By: Nick Salmeron MD, 08/19/2024 2:21 AM Narrative 08/19/2024 2:23 [place] [address] EXAMINATION: XR THOR SPINE 3V HISTORY: Back pain. COMPARISON: No comparison. TECHNIQUE: 3 views of the thoracic spine. FINDINGS: There is mild dextrocurvature of the thoracic spine. Vertebral body heights appear preserved. Disc spaces appear intact. No distinct fracture or destructive bone process is identified. Visualized lungs appear clear. Procedure Note Nick Salmeron MD - 08/19/2024 [place] [address] EXAMINATION: XR THOR SPINE 3V HISTORY: Back pain. COMPARISON: No comparison. TECHNIQUE: 3 views of the thoracic spine. FINDINGS: There is mild dextrocurvature of the thoracic spine. Vertebral bodyheights appear preserved. Disc spaces appear intact. No distinct fractureor destructive bone process is identified. Visualized lungs appearclear. IMPRESSION: 1. No acute osseous abnormality identified. 2. Mild dextrocurvature of the thoracic spine. Referred By: Interpreted By: Nick Salmeron MD, 08/19/2024 2:21 AM Nicko Zaidi DC GENERAL IMAGING Final Resul t * XR RIBS RT UNI (08/14/2024 1:23 PM CDT) Anatomical Region Laterality Modality Chest Radiographic Tammy ging 08/19/2024 2:18 AM CDT Impressions 08/19/2024 2:21 AM CDT IMPRESSION: No acute displaced right rib fracture identified. Referred By: Interpreted By: Nick Salmeron MD, 08/19/2024 2:18 AM Narrative 08/19/2024 2:21 [place] [address] EXAMINATION: XR RIBS RT UNI HISTORY: Rib pain. COMPARISON: Radiographs April 09, 2016. TECHNIQUE: 2 views of the right ribs. FINDINGS: No acute displaced right rib fracture is seen. No destructive bone process. Included right lung appears clear. Procedure Note Nick Salmeron MD - 08/19/2024 [place] [address] EXAMINATION: XR RIBS RT UNI HISTORY: Rib pain. COMPARISON: Radiographs April 09, 2016. TECHNIQUE: 2 views of the right ribs. FINDINGS: No acute displaced right rib fracture is seen. No destructive boneprocess. Included right lung appears clear. IMPRESSION: No acute displaced right rib fracture identified. Referred By: Interpreted By: Nick Salmeron MD, 08/19/2024 2:18 AM Nicko Zaidi DC GENERAL IMAGING Final Resul t * XR LUMB SP+OBL+FLEX+EXT 7V (08/14/2024 1:23 PM CDT) Anatomical Region Laterality Modality Spine Radiographic Tammy ging 08/16/2024 10:3 0 AM CDT Impressions 08/16/2024 10:32 AM CDT IMPRESSION: 1. Moderate diffuse degenerative disease, worst at L4-L5 and L5-S1. 2. No malalignment. 3. No evidence of change with flexion or extension. 4. If neurologic signs are present, MRI recommended. 5. Stable old mild superior endplate compression fracture at L2. Ordered By: NICKO ZAIDI Interpreted By: Delbert Corona, 08/16/2024 10:30 AM Narrative 08/16/2024 10:32 AM CDT [address] [address] EXAMINATION: Lumbar spine EXAM DATE: 08/14/2024 12:45 PM REASON FOR EXAM: back pain Back pain COMPARISON: 04/09/2020 TECHNIQUE: 5 views FINDINGS: 5 lumbar-type vertebrae are identified. Superior endplate depression likely old compression fracture at L2, stable. Moderate diffuse degenerative disc disease and facet arthropathy, worst at L4-L5 and L5-S1. Oblique images demonstrate no evidence of spondylolysis. No malalignment. Flexion and extension views demonstrate no evidence of change with flexion or extension. Early bilateral sacroiliac osteoarthritis. Moderate levoscoliosis. Procedure Note Delbert Corona MD - 08/16/2024 [facility] [address] [place] [address] EXAMINATION: Lumbar spine EXAM DATE: 08/14/2024 12:45 PM REASON FOR EXAM: back pain Back pain COMPARISON: 04/09/2020 TECHNIQUE: 5 views FINDINGS: 5 lumbar-type vertebrae are identified. Superior endplate depressionlikely old compression fracture at L2, stable. Moderate diffuse degenerative disc disease and facet arthropathy, worst atL4-L5 and L5-S1. Oblique images demonstrate no evidence of spondylolysis. No malalignment. Flexion and extension views demonstrate no evidence of change with flexionor extension. Early bilateral sacroiliac osteoarthritis. Moderate levoscoliosis. IMPRESSION: 1. Moderate diffuse degenerative disease, worst at L4-L5 and L5-S1. 2. No malalignment. 3. No evidence of change with flexion or extension. 4. If neurologic signs are present, MRI recommended. 5. Stable old mild superior endplate compression fracture at L2. Ordered By: NICKO ZAIDI Interpreted By: Delbert Corona, 08/16/2024 10:30 AM us Nicko Zaidi DC GENERAL IMAGING Final Resul t * XR CERV SP OBL+FLEX+EXT 7V (08/14/2024 1:23 PM CDT) Anatomical Region Laterality Modality Spine Radiographic Tammy ging 08/16/2024 10:3 2 AM CDT Impressions 08/16/2024 10:45 AM CDT IMPRESSION: 1. Moderate degenerative changes and straightening of the normal cervical lordosis. 2. Multilevel foraminal stenosis suspected. Canal stenosis not excluded. 3. If neurologic signs present, consider MRI. Ordered By: NICKO ZAIDI Interpreted By: Delbert Corona, 08/16/2024 10:32 AM Narrative 08/16/2024 10:45 AM CDT [facility] [address] [place] [address] EXAMINATION: Cervical spine EXAM DATE: 08/14/2024 12:45 PM REASON FOR EXAM: neck pain Cervical spine pain COMPARISON: None TECHNIQUE: 7 views FINDINGS: 7 cervical-type vertebrae are identified. Straightening of the normal cervical lordosis. Moderate degenerative disc disease and facet arthropathy. Worst at C5-C6 and C6-7. Multilevel foraminal stenosis suspected. Canal stenosis not excluded. Flexion and extension views demonstrate no malalignment. Procedure Note Delbert Corona MD - 08/16/2024 [facility] [address] [place] [address] EXAMINATION: Cervical spine EXAM DATE: 08/14/2024 12:45 PM REASON FOR EXAM: neck pain Cervical spine pain COMPARISON: None TECHNIQUE: 7 views FINDINGS: 7 cervical-type vertebrae are identified. Straightening of the normal cervical lordosis. Moderate degenerative discdisease and facet arthropathy. Worst at C5-C6 and C6-7. Multilevel foraminal stenosis suspected. Canal stenosis not excluded. Flexion and extension views demonstrate no malalignment. IMPRESSION: 1. Moderate degenerative changes and straightening of the normalcervical lordosis. 2. Multilevel foraminal stenosis suspected. Canal stenosis notexcluded. 3. If neurologic signs present, consider MRI. Ordered By: NICKO ZAIDI Interpreted By: Delbert Corona, 08/16/2024 10:32 AM us Nicko Zaidi [place] GENERAL IMAGING Final Resul t * MG DIAG W KORIN LT DIGI (01/29/2024 10:27 AM HARNESS BUILDER) Anatomical Region Laterality Modality Breast Left Mammography, Rad iographic Imaging 01/29/2024 10:4 5 AM HARNESS BUILDER Impressions 01/29/2024 10:57 AM HARNESS BUILDER ===== IMPRESSION: ===== 1. No mammographic evidence of malignancy. Assessment: ACR BI-RADS 2 - BENIGN FINDING(S) Recommendation: 1:Routine Screening Bilateral Comments: Ordered By: VIDAL CEE Interpreted By: Eden Mayes, 01/29/2024 10:45 AM Narrative 01/29/2024 10:57 AM HARNESS BUILDER [facility] [address] [place] [address] EXAMINATION: Digital left diagnostic mammogram with 3-D tomography. Left breast ultrasound [id number] EXAM DATE/TIME: 01/29/2024 9:29 AM REASON FOR EXAM: abnormal mamam COMPARISON: 07/19/2023. 06/06/2023 TECHNIQUE: Digital diagnostic mammography of the left breast was performed in addition to 3-D Tomosynthesis technique. This study was read with the assistance of a computer-aided detection system. Focused left breast ultrasound TISSUE DENSITY: There are scattered areas of fibroglandular density. Findings: Similar appearance to posteriorly located 3:00 position left breast nodule. Low density centrally. Consistent with the 9 lymph node. It is partially seen on exaggerated CC spot compression image. No malignant microcalcifications or architectural distortion. Left breast ultrasound. Imaging at the 3:00 position. 12 cm from the nipple. Benign underlying lymph node with fatty hilum. No shadowing. Color flow to the hilum. Measures 8.0 x 4.2 x 8.3 mm. Prior measurement of 8.1 x 4.9 x 7.7 mm. Vidal Cee MD MAMMO Final Resul t * HEPATITIS C ANTIBODY (04/09/2020 1:45 PM HARNESS BUILDER) HEPATITIS C AB NON-REACTI VE NON-REACTI VE 04/09/2020 8:11 PM HARNESS BUILDER [facility] 04/09/2020 1:45 PM HARNESS BUILDER Rosalinda Johnson PA-C LABORATORY Final Resu lt [facility] [address] [place] [address], [place] [phone] from Last 3 Months or Most Recently Relevant to Health Maintenance Insurance [facility] Advance Directives * Full Code (Latest Code Status on File) Date Activated Date Inactivated Comments 04/26/2024 2:34 PM 04/26/2024 5:18 PM Care Teams Dehydrogenation Supervisor Relationship Specialty [place] [id number] [phone] PCP - General INTERNAL MEDICINE 12/07/23 Nelda Roth NP- [address] [place] [address] Nurse Practitioner NURSE PRACTITIONER 04/09/20
--- OUTSIDE RECORDS SUMMARY | 2024-09-22 17:54 | XMS_ITS | Encounter Summary ---
Author Organization [facility] Address [facility] [place] [address] Care Team Providers Care Cant Gang Sawyer Name Role Phone Nelda Roth NETWORK SUPPORT MANAGER- Unavailable + [phone] Marium Pantoja NP Primary Care Provider [phone] Vsau Hernandez MD Primary Care Provider [phone] Encounter Details Date Type Department Care Team ([facility] Contact Info) Description 08/25/2023 [employer] Message Enc [facility] Family & Internal Medicine [address] [phone] [facility] Provider concern Social History Tobacco Use Types Packs/Day Years [...] and Family Not on file 11/05/2019 Attends Bahai Services Not on file 11/04 Active Member [...] Recorded Patient Health Questionnaire-2 Score 0 05/15/2023 [facility] ional [facility] - [...] Sex Assigned at Female 04/26/2024 11:53 AM FLORIST HELPER Legal Sex Female 6:49 PM CDT Gender Identity Not on file Sexual Orientation Straight 04/07/2021 8: 35 AM FLORIST HELPER documented as of this encounter Plan of Treatment Upcoming Encounters Date Type Department Care Team (Late st Contact Info) Description 11/18/2024 7:00 AM CDT Office Visit [facility] Family & Internal Medicine - [place] [address] [place] [phone] [place] [address] [facility] [address] [place] [address] documented as of this encounter Visit Diagnoses Not on filedocumented in this encounter Additional Health Concerns Assessment Noted Time PHQ-9 Depression Total Score: 0 03/25/19 23 9:54 AM FLORIST HELPER documented as of this encounter Care Teams Cant Gang Sawyer Relationship Specialty Start [place] [address] [facility] [address] [place] [address] PCP - General Nurse Practitioner Family 04/18/23 12/06/23 [place] [address] [facility] [address] [place] [address] PCP - General INTERNAL MEDICINE 12/07/23 Nelda Roth NP- [address] [place] [phone] Nurse Practitioner NURSE PRACTITIONER 04/09/20 documented as of this encounter
--- OUTSIDE RECORDS SUMMARY | 2024-09-22 17:54 | XMS_ITS | Clinical Summary ---
Author Organization [facility] Address [address] [place] [address] Phone Care Team Providers Care Technician Helper Instrument Name Role Phone Vasu Hernandez MD Primary Care Provider [phone] Kaleb Youngblood DO Unavailable [phone] Allergies Active Allergy Reactions Criticality Noted Date Comments Sulfa Antibiotics Hives,Other (see Comments),Rash,Unkno wn Medium 02/01/2011 Substance with sulfonamide structure and antibacterial mechanism of action (substance) Medications Progesterone (PROMETRIUM) 100 MG Capsule Take 100 mg by mouth. 04/03/2024 Active sertraline (ZOLOFT) 50 MG Tablet Take 50 mg by mouth daily. 03/26/2024 Active Active Problems Problem Noted Date Diagnosed Date Refractory anemia, unspecified 04/24/2024 Bruising 04/24/2024 Family History Medical History Relation Name Comments Hypertension Brother 1 Cancer Father Cancer Mother Relation Name Status Comments Brother 1 Alive Brother 2 Alive Father Mother Sister Alive Social History Tobacco Use Types Packs/Day Years Used Date Smoking Tobacco: Never Smokeless Tobacco: Never Tobacco Cessation:Counseling Given: No Alcohol Use Standard Drinks/Week Comments Yes 2 (1 standard drink = 0.6 oz pur e alcohol) Sexually Active Control Partners Comments Yes Comments Unknown Sex and Gender Information Value Date Recorded Sex Assigned at Not on file Legal Sex Female 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 Gender Identity Not on file Sexual Orientation Not on file Last Filed Vital Signs Vital Sign Reading Time Taken Comments Blood Pressure 110/70 06/05/2024 10:51 AM CDT Pulse 68 06/05/2024 10:51 AM CDT Temperature 36.7 C (98 F) 06/05/2024 10:51 AM CDT Respiratory Rate - - Oxygen Saturation 99% 06/05/2024 10:51 AM CDT Inhaled Oxygen Concentration - - Weight 73.9 kg (163 lb) 06/05/2024 10:51 AM CDT Height 160 cm (5' 3) 06/05/2024 10:51 AM CDT Body Mass Index 28.87 06/05/2024 10:51 AM CDT Plan of Treatment Health Maintenance Due Date Last Done Comments TdaP Immunization 1972 Hepatitis B Immunization (1 of 3 - 19+ 3-dose series) 01/27/1991 Cologuard 01/27/2017 Colonoscopy 01/27/2017 Colorectal Cancer Screening 01/27/2017 Immunochemical Fecal Occult Blood 01/27/2017 Pneumococcal Immunization (50+ years) (1 of 1 - PCV) 01/27/2022 Zoster Immunization (1 of 2) 01/27/2022 SARS-COV-2 Immunization (2 - season) 2023 06/06/2020 Influenza Immunization (#1) 2024 Mammogram 2025 01/29/2024, 04/0 10/2023, 08/09/2022, Additional history exists Respiratory Syncytial Virus (RSV) Immunization (Adult) (1 - 1-dose 75+ series) 01/27/2047 Hepatitis C Virus (HCV) Screening Completed 04/09/2020 Human Papillomavirus (HPV) Immunization Aged Out No longer eligible based on patient's age to complete this topic Meningococcal Immunization (ACWY) Aged Out No longer eligible based on patient's age to complete this topic Rotavirus Immunization Aged Out No lo nger eligible based on patient's age to complete this topic Insurance [facility] Care Teams Technician Helper Instrument Relationship Specialty Start Date End Date Vasu Hernandez MD PCP - General Internal Medicine 04/05/24 Kaleb Youngblood DO [address] [place] [phone] Consulting Physician Oncology 04/05/24
--- OUTSIDE RECORDS SUMMARY | 2024-09-22 17:54 | XMS_ITS | Clinical Summary ---
Author Organization [facility] Address [address] [place] [address] Care Team Providers Care Professional Soccer Player Name Role Phone Dawn Mendoza MD Unavailable Source Comments [facility],non-owned Affiliates and Associated Physician Practices is amultiple site organization consisting of ambulatory clinics and hospital sitesin [place], [place], [place] and [place]. This disclosure is being madepursuant to the Care Everywhere program and may not contain all information available regarding this patient. Last updated 17[facility] Allergies Active Allergy Reactions Criticality Noted Date Comments Sulfa Drugs Urticaria,Rash Medium 02/01/2011 Medications * Be aware that medications may not be up to date on this document. Alwaysverify current medications with the patient. 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 Not on file Not on file Not on file Last Filed Vital Signs Vital Sign Reading Time Taken Comments Blood Pressure 106/37 05/27/2021 1:51 PM CDT Pulse 84 05/27/2021 1:51 PM CDT Temperature 36.6 C (97.8 F) 05/27/2021 1:51 PM CDT Respiratory Rate - - Oxygen Saturation - - Inhaled Oxygen Concentration - - Weight 76.1 kg (167 lb 12.8 oz) 05/27/2021 1:51 PM CDT Height 162.6 cm (5' 4) 05/27/2021 1:51 PM CDT Body Mass Index 28.8 05/27/2021 1:51 PM CDT Plan of Treatment Health Maintenance Due Date Last Done Comments COLOGUARD (AGES 45-75) - COLON CA SCREENING 1972 COLON MONITORING 1972 COLONOSCOPY - COLON CA SCREENING 1972 CT COLONOGRAPHY - COLON CA SCREENING 1972 Colorectal Cancer Screening 1972 FIT - COLON CA SCREENING 1972 FLEX SIG - COLON CA SCREENING 1972 HIV SCREENING 01/27/1987 HEPATITIS C SCREENING 01/23/1990 DTAP/TDAP/TD VACCINES (1 - Tdap) 01/27/1991 HEPATITIS B VACCINE (1 of 3 - 19+ 3-dose series) 01/27/1991 PNEUMOCOCCAL VACCINE 50+ (1 of 1 - PCV) 01/27/2022 ZOSTER VACCINE (1 of 2) 01/27/2022 COVID-19 VACCINE (1 - season) 2023 PAP SMEAR 11/04/2023 11/03/2020, 11/03/2020 DEPRESSION SCREENING 02/28/2024 MAMMOGRAM 08/09/2024 08/09/2022, 05/20/2021 INFLUENZA VACCINE (#1) 2024 SCREENING FOR DIABETES 12/01/2024 2, 12/01/2021, 03/23/2021, Additional history exists LIPID TESTING 03/23/2026 03/23/2021 HIB VACCINE Aged Out No longer eligi ble based on patient's age to complete this topic HPV VACCINE Aged Out No longer eligi ble based on patient's age to complete this topic MENINGOCOCCAL (Group B) VACCINE SHARED DECISION-MAKING Aged Out No longer eligible based on patient's age to complete this topic MENINGOCOCCAL GROUPS A/C/Y/W VACCINE Aged Out No longer eligible based on patient's age to complete this topic Procedures Procedure Name Priority Date/Time Associated Diagnosis Comments MAMMO BILAT SCREENING W KORIN Routine 08/09/2022 1:28 PM CDT Encounter for screening mammogram for malignant neoplasm of breast from Last 3 Months or Most Recently Relevant to Health Maintenance Results * MAMMO BILAT SCREENING W KORIN (08/09/2022 1:28 PM CDT) Anatomical Region Laterality Modality Breast Bilateral Mammography 08/09/2022 3:46 PM CDT Impressions 08/09/2022 3:51 PM CDT : No mammographic evidence of malignancy in either breast. ASSESSMENT: BIRADS Category 1: Negative mammogram. RECOMMENDATION: Bilateral screening mammogram in one year. Thank you for allowing us to participate in the care of your patient. [facility] utilizes [employer] as a reminder system to notify patients of their next recommended mammogram. > Interpreting Provider: Kati Leon MD on 08/09/2022 3:51 PM Narrative 08/09/2022 3:51 PM CDT EXAMINATION: Digital screening mammogram. Low-dose full-field digital breast tomosynthesis examination was performed with synthetic 2D images. Computer assisted detection was utilized. DATE: 08/09/2022 1:28 PM PRIOR: 2021 and prior mammograms dating back to 2018. BREAST PARENCHYMAL DENSITY: The breasts are heterogeneously dense, which may obscure small masses. FINDINGS: No suspicious masses, areas of architectural distortion or microcalcifications are evident on synthetic 2D mammogram or tomosynthesis images. There has been no significant interval change since the prior examination. Dawn Mendoza MD MAMMO ORDERABLES Final Result from Last 3 Months or Most Recently Relevant to Health Maintenance Insurance [employer] Care Teams Professional Soccer Player Relationship Specialty Start Date End Date Dawn Mendoza MD [address] [place] [phone] Surgeon Surgical Oncology 05/24/21
--- OUTSIDE RECORDS SUMMARY | 2024-09-22 17:54 | XMS_ITS | Encounter Summary ---
Author Organization [facility] Address [address] [place] [address] Care Team Providers Care Senior Business Development Manager Name Role Phone Nelda Roth CARPET OR RUG LAYER HELPER- Unavailable + [phone] Shazia Martinez Primary Care Provider + [phone] Delia Nance [facility]- Primary Care Provider + Marium Pantoja NP Primary Care Provider + [phone] Vasu Hernandez MD Primary Care Provider [phone] Encounter Details Date Type Department Care Team (Late st Contact Info) Description 03/24/2021 Orbotixt Message Enc [facility] Family & Internal Medicine [facility] [address] [place] [address] [place] [address] [place] [address] CBC w/diff Social History Tobacco Use Types Packs/Day Years [...] and Family Not on file 11/05/2019 Attends [employer] Services Not on file 11/04 Active Member [...] move on to questions 3-9 0 03/23/2021 [facility] [place] [facility] Occupat ional Health - Occupational Stress [...] Sex Assigned at Female 04/26/2024 11:53 AM PRINTED CIRCUIT BOARD PANELS DEBURRER Legal Sex Female 6:49 PM CDT Gender Identity Not on file Sexual Orientation Straight 04/07/2021 8: 35 AM PRINTED [employer]ARD PANEL[employer] DEBURRER COVID-19 Exposure Response Date Recorded In the last month, have you been in contact with someone who was confirmed or suspected to have Coronavirus / COVID-19? No / Unsure 03/23/2021 8:49 AM PRINTED CIRCUIT BOARD PANELS DEBURRER documented as of this encounter Plan of Treatment Upcoming Encounters Date Type Department Care Team (Late st Contact Info) Description 11/18/2024 7:00 AM CDT Office Visit [facility] Family [facility] Internal [facility] [address] [place] [phone] [place] [address] [id number] documented as of this encounter Visit Diagnoses Not on filedocumented in this encounter Additional Health Concerns Infection Onset Date Last Indicated Resolved Time COVID-19 Rule Out 04/26/2023 04/26/2023 04/26/2023 2:17 PM [employer]ER Influenza - Seasonal 04/26/2023 04/26/2023 024 12:32 AM PR[employer] DEBURRER Assessment Noted Time PHQ-9 Depression Total Score: 0 03/23/19 22 8:57 AM [employer] DEBURRER documented as of this encounter Care Teams Senior Business Development Manager Relationship Specialty [place] [address] [place] [address] PCP - General PHYSICIAN CROP SETTING OUT MACHINE OPERATOR 03/10/21 03/29/23 Delia Nance, AUTOMOBILE RENTAL REPRESENTATIVE- [address] [place] [address] PCP - General Nurse Practitioner Family 03/30/23 04/17/23 [place] [address] [place] [address] PCP - General Nurse Practitioner Family 04/18/23 12/06/23 [place] [address] [place] [address] PCP - General INTERNAL MEDICINE 12/07/23 Nelda Roth NP- [address] [place] [address] Nurse Practitioner NURSE PRACTITIONER 04/09/20 documented as of this encounter
--- OUTSIDE RECORDS SUMMARY | 2024-09-22 17:54 | XMS_ITS | Encounter Summary ---
Author Organization [facility] Address [facility] [place] [address] Care Team Providers Care Director Of Accounting Name Role Phone Nelda Roth LVN- Unavailable + [phone] Shazia Martinez Primary Care Provider + [phone] Delia Nance [facility]- Primary Care Provider + Marium Pantoja NP Primary Care Provider + [phone] Vasu Hernandez MD Primary Care Provider [phone] Encounter Details Date Type Department Care Team ([facility] st Contact Info) Description 12/22/2021 Meepst Message Enc [facility] Family & Internal Medicine [facility] [address] [place] [address] [place] [address] [place] [address] Follow up questions Social History Tobacco Use Types Packs/Day Years [...] and Family Not on file 11/05/2019 Attends [employer] Not on file 11/04 Active Member [...] move on to questions 3-9 0 03/23/2021 [facility] of Occupat ional Health - Occupational Stress [...] Sex Assigned at Female 04/26/2024 11:53 AM ANCIENT ART CURATOR Legal Sex Female 6:49 PM CDT Gender Identity Not on file Sexual Orientation Straight 04/07/2021 8: 35 AM ANCIENT ART CURATOR COVID-19 Exposure Response Date Recorded In the last 10 days, have yo u been in contact with someone who was confirmed or suspected to have Coronavirus/COVID-19? No / Unsure 12/16/2021 2:49 PM CDT documented as of this encounter Plan of Treatment Upcoming Encounters Date Type Department Care Team (Late st Contact Info) Description 11/18/2024 7:00 AM CDT Office Visit [facility] Family & Internal Medicine [facility] [address] [place] [address] [place] [address] [phone] documented as of this encounter Visit Diagnoses Not on filedocumented in this encounter Additional Health Concerns Infection Onset Date Last Indicated Resolved Time COVID-19 Rule Out 04/26/2023 04/26/2023 04/26/2023 2:17 PM ANCIENT ART CURATOR Influenza - Seasonal 04/26/2023 04/26/2023 024 12:32 AM ANCIENT ART CURATOR Assessment Noted Time PHQ-9 Depression Total Score: 0 03/23/19 8:57 AM ANCIENT ART CURATOR documented as of this encounter Care Teams Director Of Accounting Relationship Specialty [place] [address] [place] [address] PCP - General PHYSICIAN ONLINE COMMUNITY MANAGER 03/10/21 03/29/23 Delia Nance, [employer]- [address] [place] [address] PCP - General Nurse Practitioner Family 03/30/23 04/17/23 [place] [address] [place] [address] PCP - General Nurse Practitioner Family 04/18/23 12/06/23 [place] [address] [place] [address] PCP - General INTERNAL MEDICINE 12/07/23 Nelda Roth NP- [address] [place] [address] Nurse Practitioner NURSE PRACTITIONER 04/09/20 documented as of this encounter
--- OUTSIDE RECORDS SUMMARY | 2024-09-22 17:54 | XMS_ITS | Data Portability ---
Author Organization [facility], [id number] Address [address] [place] [address] Assessment No assessment recorded. Plan of Treatment Reminders Order Date Submit Date Provider Last Modified By Organization Details Last Modified Time Details Appointments ARMIDA Mchugh mal pap f/u 15 2024 08:45A M JEANNETTE VEGA CNM Not available Not available Not available Lab pregn frankie test, urine 2024 025 adollpollard [id number] [facility] [address], [address] [facility] [address], [place], [address], 06/18/2024 17:37:59 surgi zbigniew patho logy study 2024 025 [facility] ([facility]), [address] [place] [address] , [facility] [address], [place], [address], 06/25/2024 10:20:10 Referral None recor ded. Procedures None recor ded. Surgeries None recor ded. Imaging None recor ded. Medication Orders None recor ded. Patient TargetsNo targets recorded. Patient InstructionsNo instructions recorded. Reason for Referral None Reported. Results Created Date Observation Date Name Description Value Unit Range Abnormal Flag Note LastModifiedBy Organization Detail LastModifiedTime 06/19/19 25 07/01/2024 SURGI ZBIGNIEW PATHO LOGY surgical pathology View Report ACCES PERLITA #: [id number] Patie nt Name: MAKENNA REYES Age-S ex-DO B: 54y F [birth year] Proce dure Date: 06/18 69 Acces perlita Date: 2024 Pt Acct# : Repor t Date: 025 Locat ion: OFFIC E Physi gm( s): Howard Perez rd, MD P A T H O L O G Y R E P O R T DIAGN OSIS: Cervi x, loop elect rosur gical excis ion: Trans ition zone mucos a with focal squam ous atypi a nondi agnos tic for intra epith elial lesio n. No intra epith elial lesio n or malig fina ident ified . Comme nts: Previ ous pap ([id number]) was inter prete d as negat luisa for intra epith elial lesio n or malig fina with posit ivity for high risk HPV DNA. Kuldip Gonzalez MD elect arnoldo allluis edelmira d 07/01 04:28 PM Gross Descr iptio n: The speci men is recei hanh in forma srinivas label ed with Makenna Reyes addit ional ly label ed LEEP of cervi x per the requi sitio n and consi sts of a 1.8 x 1.1 x 0.7 cm porti on of rose-g ray soft tissu e surfa rj by minim al rose-p ink, jacklyn h mucos a consi stent with disru pted cervi x. No defin itive endoc ervic al junct ion can be gross ly deter mined . The resec tion ronald n is inked blue. The speci men is seria lly secti oned to revea l unrem arkab le rose-g ray soft tissu e. The entir e speci men is submi tted seque ntial ly in 1A-1B , 05/28 each. (KFA) (EJ4, pc9) Gross ing servi estelle provi ded by [facility] d/b/a [facility] [address] [place], [address] Rolanda Heller. Georgiana alford MD, Labor atory Direc tor. Micro scopi c Descr iptio n: Micro scopi c exami natio n condu cted. Immun ostai reji condu cted on all tissu e demon strat es negat ivity for p16 and no incre ase in proli ferat luisa rate via Ki67. These findi ngs eileen borat e above diagn osis. Contr ol tissu e has appro priat e react ivity . Clini zbigniew Histo ry: High grade squam ous intra epith elial lesio n on cytol ogic smear of cervi x (HGSI L) (R87. 613) Speci men List: LEEP of cervi x Unles s speci fied other yun above , the quali ty of the H and E and any other stain s perfo rmed is satis facto ry, and any inter nal or exter nal posit luisa and negat luisa contr ols react appro priat gilmar. FDA Requi red Discl aimer : Labor atory test resul ts shoul d alway s be consi dered in the lisandra xt of clini zbigniew obser vatio ns and epide miolo gic data. Some tests repor reynold here have been devel oped and their perfo rmanc e ricardo cteri stics deter mined by [facility] [employer], d/b/a Emily fernández. They have not been clear ed or appro hanh by the U.S. Food and Drug Admin istra tion (FDA) . The FDA has deter mined that such clear ance or appro ben is not neces mia. These tests are used for clini zbigniew purpo ses. They shoul d not be regar ded as inves tigat ional or for resea rch. [facility] [employer], d/b/a Path[facility] routere is certi fied under the Clini zbigniew Labor atory Impro vemen t Amend ments (CLIA ) as quali fied to perfo rm high compl exity clini zbigniew labor atory testi ng. End of Repor t Techn ical servi estelle provi ded by [facility] d/b/[facility], [address] , [place] [address] Rolanda alford MD, Labor atory Dire tor. Case revie wed and diagn osis rende red at [facility], [address], [place] [address] Kuldip Gonzalez MD, Medic al Direc tor. CONFI DENTI AL Not Available [facility] ([facility]) [address], [place], [address], 07/01/2024 17:31:03 06/19/19 25 06/18/2024 pregn frankie test, urine HCG negati ve Not Available [id number] [facility] [address], [place], [address], 06/18/2024 15:22:30 Result Notes None recorded. Problems Name Problem SNOMED Code Status Onset Date Resolution Date Notes Provider Name and Address Organization Details Recorded Time Overweight 313576134 Active 2024 Antonio Nam [facility] 5 11:26:08 Dysplasia of cervix 38475792 Active 2024 HOWARD GREY MD [address] [facility] [address], [place], [place], [address], [facility] 5 10:05:09 Abnormal uterine bleeding 5715770546814 0 Active 2024 HOWARD GREY MD [address] [facility] [address], [place], [place], [address], [facility] 5 10:33:04 Problem Notes None recorded. Procedures Surgical History Date Name Laterality Status Provider Name and Address Organization Details Recorded Time 06/19/19 25 LEEP Procedure Note ([facility]) completed HOWARD LANIER MD [address] [facility] [address], [place], [address], [facility] 06/20/2024 09:13:10 04/26/19 25 HYSTEROSCOPY, SURGICAL, WITH BIOPSY OF ENDOMETRIUM AND/OR POLYPECTOMY (SURG) completed Adore Gillis [facility] 06/12/2024 13:07:47 01/28/20 24 Date of Last Mammogram completed Antonio Nam [facility] 05/02/2024 11:27:58 12/18/19 24 Date of Last Pap Smear completed Giulia [facility] 06/18/2024 15:56:03 02/27/19 22 Date of Last Colonoscopy completed Antonio Nam [facility] 05/02/2024 11:28:07 Dilation and Curettage completed [facility] 06/18/2024 11:09:03 Endometrial Ablation [facility] 06/18/2024 11:09:03 [facility]oph[facility]omy [facility] 06/18/2024 11:09:03 Endometrial Biopsy completed [facility] 06/18/2024 11:09:03 Appendectomy completed [facility] 06/18/2024 11:09:03 Caesarean Section completed Giulia [facility] 06/18/2024 11:09:03 Appendectomy completed Not Available [facility] 06/27/2024 12:06:55 section completed Not Available [facility] 06/27/2024 12:06:55 dilation and curettage completed Not Available [facility] 12:06:55 hysterectomy completed [facility] Available [facility] 06/27/2024 12:06:55 hysteroscopy and endometrial biopsy completed Not Available [facility] 06/27/2024 12:06:55 endometrial biopsy completed Not Available [facility] 06/27/2024 12:06:56 extraction of wisdom tooth completed Not Available [facility] 06/27/2024 12:06:56 Imaging Results None recorded. Procedure Notes None recorded. Medical Equipment None Reported. Allergies Allergen ID Allergen Name Allergen Category Reaction Reaction Severity Criticality Documentation Date Start Date Code Code System Note Provider Name and Address Organization Details Recorded Time 706214 Substance with sulfonami de structure and antibacte rial mechanism of action (substanc e) medicatio n Not available Not available Not available 05/02/2024 [id number] 11:25:46 Medications Name Sig Start Date Stop Date Status Note LastModified by Organization Details LastModified Time prednisone 10 mg tablet TAKE ONE TABLET BY MOUTH TWICE DAILY FOR 5 DAYS 06/13 completed Not Available Not Available Not Available azithromyci n 250 mg tablet TAKE TWO TABLETS BY MOUTH ON DAY ONE THEN ONE DAILY FOR FOUR DAYS 06/13 completed Not Available Not Available Not Available hydrocodone 5 mg-acetamin ophen 325 mg tablet TAKE 1 OR 2 TABLETS BY MOUTH EVERY 6 HOURS NEEDED FOR PAIN after surgery 06/13 completed Not Available Not Available Not Available phentermine 37.5 mg tablet TAKE ONE HALF OF A TABLEt BY MOUTH EVERY DAY. AVOID CAFFEINE AND ALCOHOL. active Not Available Not Available No t Available terbinafine HCl 250 mg tablet TAKE ONE TABLET BY MOUTH DAILY. 06/13 completed Not Available Not Available Not Available benzonatate 100 mg capsule TAKE ONE CAPSULE BY MOUTH THREE TIMES DAILY NEEDED FOR COUGH 06/13 completed Not Available Not Available Not Available omeprazole 20 mg capsule,del ayed release take ONE capsule by MOUTH every morning 06/13 completed Not Available Not Available Not Available hydroxyzine HCl 25 mg tablet TAKE ONE TABLET BY MOUTH TWICE DAILY NEEDED FOR ITCHING 06/13 completed Not Available Not Available Not Available albuterol sulfate HFA 90 mcg/actuati on aerosol inhaler INHALE TWO PUFFS INTO THE LUNGS EVERY 6 HOURS NEEDED FOR WHEEZING 06/13 completed Not Available Not Available Not Available sertraline 50 mg tablet TAKE ONE TABLET BY MOUTH DAILY active Not Available Not Available No t Available naproxen 500 mg tablet TAKE ONE TABLET BY MOUTH EVERY TWELVE HOURS for at least 14 days after surgery. 06/13 completed Not Available Not Available Not Available progesteron e micronized 100 mg capsule TAKE ONE CAPSULE BY MOUTH AT BEDTIME active Not Available Not Available No t Available cyclobenzap rine 5 mg tablet TAKE ONE TABLET BY MOUTH THREE TIMES DAILY NEEDED FOR MUSCLE SPASMS 06/13 completed Not Available Not Available Not Available FeroSul 325 mg (65 mg iron) tablet take ONE tablet by MOUTH daily with breakfast 06/13 completed Not Available Not Available Not Available Vitals Date Recorded Body weight Heart rate Systolic And Diastolic Provider Name and Address Organization Details Last Updated DateTime 06/18/2024 89591.74 g 76 /min 126/72 mm[Hg] Giulia Tejeda I [facility] 06/18/2024 15:18:58 Social History Question Answer Notes LastModified by Organizat ion Details LastModified Time Tobacco Smoking Status Never Smoker Giulia Tejeda [facility], [facility] 06/18/2024 11:09:03 Do You Have An Advance Directive? No [email or web address] Information not available 06/18/2024 If You Are , What Was Your Level Of Alcohol Consumption Prior To ? None [email or web address] Information not available 06/18/2024 How Many Years Have You Consumed Alcohol? 20 [email or web address] Information not available 06/18/2024 What Is Your Level Of Caffeine Consumption? Occasional [email or web address] Information not available 06/18/2024 What Type Of Diet Are You Following? REGULAR [email or web address] Information not available 06/18/2024 Which Illicit Or Recreational Drugs Have You Used? None [email or web address] Information not available 06/18/2024 What Is Your Relationship Status? Other Note: Information not available 06/27/2024 How Much Tobacco Do You Smoke? No [email or web address] Information not available 06/18/2024 Sex: Unknown Functional Status Question Answer Note LastModified by Organizat ion Details LastModified Time Do you use any illicit or recreational drugs? No Information not available 06/27/2024 What is your level of alcohol consumption? Occasional [email or web address] Information not available 06/18/2024 Do you or have you ever used smokeless tobacco? Never used smokeless tobacco [email or web address] Information not available 06/18/2024 Are you currently employed? 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 Never used electronic cigarettes [email or web address] Information not available 06/18/2024 What is your exercise level? Moderate Note: - [employer] 12/26/2017 SocialHisto ryQuestion: 'Moderate Amount of Exercise (1-3 times weekly)'; Information not available 06/27/2024 Mental Status None recorded. Family History Relationship Description Onset Age of this Age Resolved Age Notes LastModified by Organization Details LastModified Time Father Malignant tumor of renal pelvis [email or web address] Not available 14:50:25 Maternal Grandfather Malignant neoplasm of lung [email or web address] Not available 2024 11:29:56 Paternal Grandfather Malignant neoplasm of skin Not available 2024 14:50:25 Paternal Grandfather Parkinson's disease [email or web address] Not available 2024 14:50:25 Paternal Grandmother Malignant tumor of breast Not available 2024 14:50:25 Mother Malignant tumor of breast Not available 2024 14:50:25 Brother Genetic disease [email or web address] Not available 2024 14:50:25 Brother Hereditary disease Geneti c Disord er - [employer] 2017 Not available 06/27/2024 16:31:53 Father Malignant neoplastic disease Cancer renal lung skin breast Not available 06/27/2024 16:31:53 Maternal Grandfather Malignant neoplastic disease Cancer renal lung skin breast Not available 06/27/2024 16:31:53 Mother Malignant neoplastic disease Cancer renal lung skin breast Not available 06/27/2024 16:31:53 Paternal Grandfather Malignant neoplastic disease Cancer renal lung skin breast Not available 06/27/2024 16:31:53 Paternal Grandmother Malignant neoplastic disease Cancer renal lung skin breast Not available 06/27/2024 16:31:53 Paternal Grandmother Parkinson's disease [place] son's Diseas e - [employer] 2017 Not available 06/27/2024 16:31:53 Medical History Condition Response ID-Other Y Hematology- Anemia Y Weight Management/Obesity Y Gynecological History Statement/Question Response History of PCOS Y Date of Last Mammogram 2024 History of Fibroids N History of Infertility Y History of Vulvar Dysplasia N History of Cervical Dysplasia N Age at Menarche 18 Current Control Method None History of Recurrent Ovarian Cysts Y Age at first intercourse 20 Post Menopausal Hormone Therapy User Nev er History of Endometriosis Y Date of Last Colonoscopy 02/27/2021 Sexually Active? Y History of Abnormal PAP N History of Dysmenorrhea N Menses Monthly N Date of Last Pap Smear 12/18/2023 Sexual Problems? Y History of Sexually Transmitted Infectio n Y Date of Last Cholesterol Screening 02/27 Obstetrics History GPAL:G 2 P 2 0 0 2 Type Value Multiple Births 0 Full Term 2 Induced 0 Spontaneous 0 Premature 0 Living 2 Ectopics 0 Total 2 Past Encounters Encounter ID Performer Location Encounter Start Date Encounter Closed Date Diagnosis/Indication Diagnosis SNOMED-CT Code Diagnosis ICD10 Code Diagnosis Note [id number] HOWARD NAM RD, MD [id number] [facility] [address] [place] [address] 05/03/2024 09:16:00 05/03/2024 10:21:56 Postoperative visit 475160507 Z48.89 Dysplasia of cervix 7339 [id number], MD [id number] 7 [facility] [address] [facility] [address] [place] [address] 06/18/2024 14:50:23 06/18/2024 16:18:10 High grade squamous intraepithelial lesion on cervical Papanicolaou smear 5433432017 9107 R87.613 History of loop electrosurgical excision procedure 8738249919 9102 Z98.890 You had a LEEP for cervical dysplasia today The results of the pathology will be back in about 7 days and it will determine any next steps and follow up. Please avoid intercours e, douches, tampons x 1 week in order to avoid an infection and bleeding. You may start with walking immediatel y and can increase to lifting light weights and low impact exercise. After 1 week you can return to normal exercise with no restrictio ns. A brown/spencer k coffee-gr ound vaginal discharge is common following the procedure due to medicine I needed to apply to the cervix to stop the bleeding from the biospy sites. Please don't let it alarm you if you see it. It may come out all at once like a scab, or it may work its way out slowly over the week. Call the office if you have a fever, pelvic pain, vaginal discharge or heavy vaginal bleeding. Please call if you have questions or concerns. [id number]ARD NAM [address], MD [id number] [facility] [address] [facility] [address] [place] [address] 06/18/2024 14:48:06 06/18/2024 16:17:58 Dysplasia of cervix 69586033 N87.9 Abnormal u terine bleeding 0891024510 9100 N93.9 Health Concerns Section Related Observation LastModified by Organization Detai ls LastModified Time None Recorded Concern Status LastModified by Organization Details LastModified Time None Recorded Advance Directives Directive N: Payers Insurance Date Sequence Insurance Name Policy Number Policy Fay Covered Member ID Fay Member ID Guarantor Name 06/26/2024 1 [place] 105 Rell Jeong [id number] Jeannette Jeong Notes Date Note Type Note Provider Name and Address Organization Details Recorded Time 05/03/2024 text/html Patient is here for a post op visit. She is not having problems. She is eating normally. No issues with bleeding. No issues with pain. Pathology report reviewed. Reviewed any operative findings. Reviewed post op instructions and routine follow-up. The patient had no questions.Reviewed paps and HGSIL. She is aware next step is a LEEP and office will call to schedule. HOWARD LANIER MD [address] [facility] [address], [place], [address], [facility] 05/03/2024 10:05:57 06/18/2024 text/html HGSIL found on cervical biospy at surgery for hysteroscopy dc.No more issues with AUB since it was removed. 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 Status 07/12/19 25 1 CLOSED Fetus Data First Name Last Name Admitted to NICU Weight (g) Sex Living Outcome Pediatric Complications Fetus ID Race Codes Race Delivery Type F [id number] z_Cesarea n Section Gopal Calculation Initial Gopal Date Initial Exam Date Initial Exam Provider Initial Ultrasound Date Last Menstrual Period Date Ultra Sound Weeks Gestation 0 Eighteen To Twenty Week Gopal Update Ultra Sound Date Fundal Height At Umbil Quickening Date Ultra Sound Latest Weeks Gestation Final Gopal Confirmed By Final Gopal Confirmed Date Final Gopal Date Ultra Sound Latest Days Gestation 0 0 Menstrual History Last Menstrual Date Menses Monthly On Bcp Conception Prior Menses Frequency Hcg Plus Date Menarche Onset Age Delivery Information Delivery Date Delivery Type Labor Anesthesia Weeks Gestation Incision Type Labor Labor Length Hrs Delivered By Post Complications Tubal Sterilization Discharge Date Comments 2 Lana fetus_1_w eight_lbs : '7.6'; Discharge Information Feeding Method Contraceptive Method Maternal HG B and HCT Levels Ob Episode Information Episode Created Date Number of Fetuses Patient Bloodtype Patient rh Status Prepregnancy Weight lbs Domestic Partner Domestic Partner Phone Father Name Asphalt Distributor 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 Status 07/12/19 25 1 CLOSED Fetus Data First Name Last Name Admitted to NICU Weight (g) Sex Living Outcome Pediatric Complications Fetus ID Race Codes Race Delivery Type F [id number] z_Cesarea n Section Gopal Calculation Initial Gopal Date Initial Exam Date Initial Exam Provider Initial Ultrasound Date Last Menstrual Period Date Ultra Sound Weeks Gestation 0 Eighteen To Twenty Week Gopal Update Ultra Sound Date Fundal Height At Umbil Quickening Date Ultra Sound Latest Weeks Gestation Final Gopal Confirmed By Final Gopal Confirmed Date Final Gopal Date Ultra Sound Latest Days Gestation 0 0 Menstrual History Last Menstrual Date Menses Monthly On Bcp Conception Prior Menses Frequency Hcg Plus Date Menarche Onset Age Delivery Information Delivery Date Delivery Type Labor Anesthesia Weeks Gestation Incision Type Labor Labor Length Hrs Delivered By Post Complications Tubal Sterilization Discharge Date Comments 7 Maria fetus_1_w eight_lbs : '7.3'; Discharge Information Feeding Method Contraceptive Method Maternal HG B and HCT Levels
--- OUTSIDE RECORDS SUMMARY | 2024-09-22 17:55 | XMS_ITS | Continuity of Care Document ---
Author Name [facility] Organization [facility] Care Team Providers Care Pigment Weigher Name Role Phone [facility] Unavailable Unavailable Social History Combined list of available smoking, tobacco, and other social history from Department of Defense and Veterans Affairs facilities. Social History Type Response Date Comment Sourc e This section is an empty social history section. [facility]
--- OUTSIDE RECORDS SUMMARY | 2024-09-22 17:55 | XMS_ITS | Encounter Summary ---
Author Organization [facility] Address Counts include 234 beds at the [facility] [place] [address] Care Team Providers Care Residency Director Name Role Phone Nelda Roth POST CLOSING SPECIALIST- Unavailable + [phone] Vasu Hernandez MD Primary Care Provider [phone] Encounter Details Date Type Department Care Team (Late Contact Info) Description 12/25/2023 Blood cell Storage Message Enc [facility] Medical Group Family & Internal Medicine [address] [address] [place], [facility] Provider surgical clearance Social History Tobacco Use Types Packs/Day Years [...] and Family Not on file 11/05/2019 Attends Taoism Services Not on file 11/04 Active Member [...] Recorded Patient Health Questionnaire-2 Score 0 05/15/2023 [facility] - Occupational [...] Sex Assigned at Female 04/26/2024 11:53 AM TRIMMER HAND Legal Sex Female 6:49 PM CDT Gender Identity Not on file Sexual Orientation Straight 04/07/2021 8: 35 AM TRIMMER HAND documented as of this encounter Progress Notes * Rama Fontenot LPN - 12/25/2023 11:40 AM CDT Pt made appt to have labs done on 3 rd floor for 12/28/23 documented in this encounter Plan of Treatment Upcoming Encounters Date Type Department Care Team (Late st Contact Info) Description 11/18/2024 7:00 AM CDT Office Visit [facility] Medical Group Family & Internal Medicine [facility] [address] [place] [address] [place] [address] [id number] documented as of this encounter Visit Diagnoses Not on filedocumented in this encounter Additional Health Concerns Assessment Noted Time PHQ-9 Depression Total Score: 0 03/25/19 23 9:54 AM TRIMMER HAND documented as of this encounter Care Teams Residency Director Relationship Specialty [place] [address] [address] PCP - General INTERNAL MEDICINE 12/07/23 Nelda Roth NP- [address] [place] [address] Nurse Practitioner NURSE PRACTITIONER 04/09/20 documented as of this encounter
--- OUTSIDE RECORDS SUMMARY | 2024-09-22 17:55 | XMS_ITS | Encounter Summary ---
Author Organization [facility] Address [facility] [place] [address] Care Team Providers Care Network Support Analyst Name Role Phone Дмитрий Morales [facility] Primary Care Provider [phone] Nelda Roth PLANT PRODUCTION MANAGER- Unavailable + [phone] Mushtaq Fraser DO Primary Care Provider Shazia Martinez Primary Care Provider + [phone] Delia Nance [facility] Primary Care Provider + Marium Pantoja PLANT PRODUCTION MANAGER Primary Care Provider + [phone] Vasu Hernandez MD Primary Care Provider [phone] Encounter Details Date Type Department Care Team (Late st Contact Info) Description 10/28/2019 Prep for Procedure [facility] [address] [place] [address] Matilda Ray MD [address] [place] [address] Social History Tobacco Use Types Packs/Day Years Used Date Smoking Tobacco: Never Smokeless Tobacco: Never Alcohol Use Standard Drinks/Week Comments Yes 0 (1 standard drink = 0.6 oz pur e alcohol) Socially PHQ-2 Answer Date Recorded PHQ-2 Score 0 09/18/2019 Comments No Sex and Gender Information Value Date Recorded Sex Assigned at Female 04/26/2024 11:53 AM BIOINFORMATICS ASSOCIATE Legal Sex Female 6:49 PM CDT Gender Identity Not on file Sexual Orientation Straight 04/07/2021 8: 35 AM BIOINFORMATICS ASSOCIATE COVID-19 Exposure Response Date Recorded In the last month, have you been in contact with someone who was confirmed or suspected to have Coronavirus / COVID-19? No / Unsure 10/08/2019 3:52 PM CDT documented as of this encounter Plan of Treatment Upcoming Encounters Date Type Department Care Team (Late st Contact Info) Description 11/18/2024 7:00 AM CDT Office Visit [facility] Medical Group Family & Internal Medicine [facility] [address] [place] [address] Vasu Hernandez MD [address] [place] [address] documented as of this encounter Results * PRE-SURGICAL/PRE-PROCEDURE CORONAVIRUS (COVID 19) (11/02/2019 8:00 AM CDT) CORONAVIRUS SARS COV 2 PCR (RESP) NOT DETECTED NOT DETECTED 11/03/2019 6:10 PM CDT [facility] Comment: A Not Detected (negative) test result for this test means that SARS- CoV-2 RNA was not present in the specimen above the limit of detection. A negative result does not rule out the possibility of COVID-19 and should not be used as the sole basis for treatment or patient management decisions. If COVID-19 is still suspected, based on exposure history together with other clinical findings, re-testing should be considered in consultation with public health authorities. Laboratory test results should always be considered in the context of clinical observations and epidemiological data in making a final diagnosis and patient management decisions. Please review the Fact Sheets and FDA authorized labeling available for health care providers and patients using the following websites: https://www.[employer].com/home/Covid-19/HCP/NAAT/fact-sheet2 https://www.[employer].Feed.fm/home/Covid-19/Patients/NAAT/ fact-sheet2 This test has been authorized by the FDA under an Emergency Use Authorization (EUA) for use by authorized laboratories. Due to the current public health emergency, [facility] is receiving a high volume of samples from a wide variety of swabs and media for COVID-19 testing. In order to serve patients during this public health crisis, samples from appropriate clinical sources are being tested. Negative test results derived from specimens received in non-commercially manufactured viral collection and transport media, or in media and sample collection kits not yet authorized by FDA for COVID-19 testing should be cautiously evaluated and the patient potentially subjected to extra precautions such as additional clinical monitoring, including collection of an additional specimen. Methodology: Nucleic Acid Amplification Test (NAAT) includes PCR or TMA Additional information about COVID-19 can be found at the [facility] website: www.[employer].Feed.fm/Covid19. Test performed at [facility] [address] [place] [address] Director: ANTONIO DELVALLE DO,MPH NASOPHARYNGEAL SWAB / Unknown 11/02/2019 8:00 AM CDT us Matilda Ray MD MICROBIOLOGY - GENERAL ORDER ALEJANDRINA Final Result [facility] [id number] [place] [id number] documented in this encounter Visit Diagnoses Diagnosis Pre-op testing- Primary Preoperative examination, unspecified documented in this encounter Additional Health Concerns Infection Onset Date Last Indicated Resolved Time COVID-19 Rule Out 11/02/2019 11/02/2019 11/03/2019 6:11 PM CDT COVID-19 Rule Out 12/25/2019 12/25/2019 12/28/2019 10:20 PM CDT COVID-19 Rule Out 04/26/2023 04/26/2023 04/26/2023 2:17 PM BIOINFORMATICS ASSOCIATE Influenza - Seasonal 04/26/2023 04/26/2023 024 12:32 AM BIOINFORMATICS ASSOCIATE documented as of this encounter Care Teams Network Support Analyst Relationship Specialty Start Date End Date Дмитрий Morales FNP [address] [facility] [address] [place] [address] PCP - General NURSE PRACTITIONER 04/02/18 12/06/20 Mushtaq Fraser DO [address] [place] [address] PCP - General FAMILY PRACTICE 12/07/20 03/09/21 [place] [address] [place] [address] PCP - General PHYSICIAN WIRE STOCKKEEPER 03/10/21 03/29/23 Delia Nance, [facility]- [address] [place] [address] PCP - General Nurse Practitioner Family 03/30/23 04/17/23 [place] [address] [place], [place] [id number] PCP - General Nurse Practitioner Family 04/18/23 12/06/23 [place] [address] [place] [address] PCP - General INTERNAL MEDICINE 12/07/23 Nelda Roth, PLANT PRODUCTION MANAGER-BC [address] [place] [address] Nurse Practitioner NURSE PRACTITIONER 04/09/20 documented as of this encounter
--- OUTSIDE RECORDS SUMMARY | 2024-09-22 17:55 | XMS_ITS | Encounter Summary ---
Author Organization [facility] Address Replaced by [facility] [place] [address] Care Team Providers Care Legal Instruments Examiner Name Role Phone Nelda Roth PREVENTIVE MAINTENANCE COORDINATOR-BC Unavailable + [phone] Vasu Hernandez MD Primary Care Provider [phone] Encounter Details Date Type Department Care Team (Late Contact Info) Description 01/15/2024 MyCRedditt Message Enc [facility] Medical Group Family & Internal Medicine - [address] [address] [place] [address] [facility] [address] [place] [address] anxiety attacks Social History Tobacco Use Types Packs/Day Years [...] and Family Not on file 11/05/2019 Attends Sikhism Services Not on file 11/04 Active Member [...] Recorded Patient Health Questionnaire-2 Score 1 01/18/2024 [facility] Occup[facility] ional Health - [...] Sex Assigned at Female 04/26/2024 11:53 AM TITLE I MATH TUTOR Legal Sex Female 6:49 PM CDT Gender Identity Not on file Sexual Orientation Straight 04/07/2021 8: 35 AM TITLE I MATH TUTOR documented as of this encounter Functional Status * Over the past 2 weeks, how often have you been bothered by any of the following problems? Question Answer Date of Assessment Author Status Little interest or pleasure in doing things Not at all 01/18/2024 7:05 AM Radha Collins LPN Active Feeling down, depressed, or hopeless Several days 01/18/2024 7:05 AM Radha Collins LPN Active Patient Health Questionnaire-2 Score 1 01/18/2024 7:05 AM Radha Collins LPN Active * Question Answer Date of Assessment Author Status Trouble falling or staying asleep, or sleeping too much Not at all 01/18/2024 7:05 AM Radha Collins LPN Active Feeling tired or having little energy Several days 01/18/2024 7:05 AM Radha Collins LPN Active Poor appetite or overeating Not at all 01/18/2024 7:05 AM Radha Collins LPN Active Feeling bad about yourself - or that you are a failure or have let yourself or your family down Not at all 01/18/2024 7:05 AM Radha Collins LPN Active Trouble concentrating on things, such as reading the newspaper or watching television Not at all 01/18/2024 7:05 AM Radha Collins LPN Active Moving or speaking so slowly that other people could have noticed? Or the opposite - being so fidgety or restless that you have been moving around a lot more than usual. Not at all 01/18/2024 7:05 AM Radha Collins LPN Active Thoughts that you would be better off or hurting yourself in some way Not at all 01/18/2024 7:05 AM Radha Collins LPN Active Patient Health Questionnaire-9 Score 2 01/18/2024 7:05 AM Radha Collins LPN Active * Calculated C-SSRS Risk Score (Lifetime/Recent) Answer Date of Assessment Author Status No Risk Indicated 01/18/2024 7:05 AM Lyric Collins LPN Active * If you checked off any problems on this questionnaire so far, Question Answer Date of Assessment Author Status How difficult have these problems made it for you to do your work, take care of things at home, or get along with other people? Not difficult at all 01/18/2024 7:05 AM Radha Collins LPN Active * Over the last 2 weeks, how often have you been bothered by any of the following problems? Question Answer Date of Assessment Author Status Feeling nervous, anxious, or on edge 0 01/18/2024 7:05 AM Radha Collins LPN Act luisa Not being able to stop or control worrying 1 01/18/2024 7:05 AM Radha Collins LPN Ac tive Worrying too much about different things 0 01/18/2024 7:05 AM Radha Collins LPN Ac tive Trouble relaxing 0 01/18/2024 7:05 AM Radha Collins LPN Active Being so restless that it is hard to sit still 1 01/18/2024 7:05 AM Radha Collins LP N Active Becoming easily annoyed or irritable 0 01/18/2024 7:05 AM Radha Collins LPN Act luisa Feeling afraid as if something awful might happen 0 01/18/2024 7:05 AM Radha Collins LPN Act luisa LUIS F-7 Total Score 2 01/18/2024 7:05 AM Radha Collins LPN Active * [place] Suicide Severity Rating Scale (Screener/Recent Self-Report) Question Answer Date of Assessment Author Status 1. Wish to be (Past 1 Month) No 01/18/2024 7:05 AM Radha Collins LPN Act luisa 2. Non-Specific Active Suicidal Thoughts (Past 1 Month) No 01/18/2024 7:05 AM Radha Collins LPN Act luisa 6. Suicidal Behavior (Lifetime) No 01/18/2024 7:05 AM Radha Collins LPN Act luisa documented as of this encounter Plan of Treatment Upcoming Encounters Date Type Department Care Team (Late st Contact Info) Description 11/18/2024 7:00 AM CDT Office Visit [facility] Medical Group Family & Internal Medicine [facility] [address] [place] [address] [place] [address] [address] documented as of this encounter Visit Diagnoses Not on filedocumented in this encounter Additional Health Concerns Assessment Noted Time PHQ-9 Depression Total Score: 0 03/25/19 23 9:54 AM TITLE I MATH TUTOR documented as of this encounter Care Teams Legal Instruments Examiner Relationship Specialty [place] [address] [address] PCP - General INTERNAL MEDICINE 12/07/23 Nelda Roth NP- [address] [place] [address] Nurse Practitioner NURSE PRACTITIONER 04/09/20 documented as of this encounter
--- OUTSIDE RECORDS SUMMARY | 2024-09-22 17:55 | XMS_ITS | Encounter Summary ---
Author Organization [facility] Address [facility] [place] [address] Care Team Providers Care Parking Cashier Name Role Phone Дмитрий Morales [facility] Primary Care Provider [phone] Nelda Roth PODIATRY DOCTOR- Unavailable + [phone] Mushtaq Fraser DO Primary Care Provider Shazia Martinez Primary Care Provider + [phone] Delia Nance [facility]- Primary Care Provider + Marium Pantoja PODIATRY DOCTOR Primary Care Provider + [phone] Vasu Hernandez MD Primary Care Provider [phone] Encounter Details Date Type Department Care Team (Late st Contact Info) Description 03/04/2016 Abstract [facility] [address] [place], [place] [address] , Juliette Roberts MD Social History Tobacco Use Types Packs/Day Years Used Date Smoking Tobacco: Never Assessed Comments Unknown Sex and Gender Information Value Date Recorded Sex Assigned at Female 04/26/2024 11:53 AM PONY WORKER Legal Sex Female 6:49 PM CDT Gender Identity Not on file Sexual Orientation Straight 04/07/2021 8: 35 AM PONY WORKER documented as of this encounter Plan of Treatment Upcoming Encounters Date Type Department Care Team (Late st Contact Info) Description 11/18/2024 7:00 AM CDT Office Visit [facility] Medical Group Family & Internal Medicine [facility] [address] [place] [address] [place] [address] [facility] [address] [place] [address] documented as of this encounter Visit Diagnoses Not on filedocumented in this encounter Additional Health Concerns Infection Onset Date Last Indicated Resolved Time COVID-19 Rule Out 11/02/2019 11/02/2019 11/03/2019 6:11 PM CDT COVID-19 Rule Out 12/25/2019 12/25/2019 12/28/2019 10:20 PM CDT COVID-19 Rule Out 04/26/2023 04/26/2023 04/26/2023 2:17 PM PONY WORKER Influenza - Seasonal 04/26/2023 04/26/2023 024 12:32 AM PONY WORKER documented as of this encounter Care Teams Parking Cashier Relationship Specialty Start Date End Date Дмитрий Morales FNP [address] [facility] [address] [place] [address] PCP - General NURSE PRACTITIONER 04/02/18 12/06/20 Mushtaq Fraser DO [address] [place] [address] PCP - General FAMILY PRACTICE 12/07/20 03/09/21 [place] [address] [place] [address] PCP - General PHYSICIAN CONCRETE POLISHER 03/10/21 03/29/23 Delia Nance, SALES SECRETARY- [address] [place] [address] PCP - General Nurse Practitioner Family 03/30/23 04/17/23 [place] [address] [place] [address] PCP - General Nurse Practitioner Family 04/18/23 12/06/23 [place] [address] [place] [address] PCP - General INTERNAL MEDICINE 12/07/23 Nelda Roth NP- [address] [place] [address] Nurse Practitioner NURSE PRACTITIONER 04/09/20 documented as of this encounter
--- OUTSIDE RECORDS SUMMARY | 2024-09-22 17:55 | XMS_ITS | Data Portability ---
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 Plan of Treatment Reminders Order Date Submit Date Provider Last Modified By Organization Details Last Modified Time Details Appointments None recorded. Lab test, urine 2021 022 [email or web address] [facility], [address], [place], [address], 12:21:38 Referral None recorded. Procedures None recorded. Surgeries hysterosco py, with endometria l ablation (SURG) 2021 [facility], [address] [place] [address], [address], 11:01:37 salpingect arnold, laparoscop ic (SURG) [address], [address] [place] [address], [address], 16:04:51 oophorecto my (SURG) [address], [address], [place], [address], 16:06:18 Imaging None recorded. Medication Orders Ebony 0.35 mg tablet [address] [facility], [address] [place] [address], [id number], 10:05:03 Patient TargetsNo targets recorded. Patient InstructionsNo instructions recorded. Reason for Referral None Reported. Results Created Date Observation Date Name Description Value Unit Range Abnormal Flag Note LastModifiedBy Organization Detail LastModifiedTime 08/10/1908/09/2021 DHEA SULFA TE DHEA-sulfate 128 ug/dL Femal e Range s Age(y ) Range (ug/d L) 10-15 34-28 0 15-20 65-36 8 20-25 148-4 07 25-35 99-34 0 35-45 61-33 7 45-55 35-25 6 55-65 19-20 5 65-75 9-246 > 75 12-15 4 Not Available [facility] (Lab) [address] [facility], [place], [address], 08/13/2021 17:07:12 08/10/19 22 08/09/2021 PROGE STERO NE progesterone 0.46 NG/mL This assay was perfo rmed using [employer] Corpo ratio n reage nts and test kits. Value s obtai shay with other assay metho ds or kits canno t be used inter [facility] e[facility] . Femal e Proge stero ne Range s: Folli cular phase 0.06- 0.89 ng/mL Ovula tion phase 0.12- 12.00 ng/mL Lutea l phase 1.83- 23.90 ng/mL Postm enopa usal< 0.05- 0.13 ng/mL Healt hy Pregn ant Women 1st Trime ster1 1.0-4 4.30 2nd Trime ster2 5.40- 83.30 3rd Trime ster5 8.70- 214.0 0 Not Available [facility] (Lab) [address], [place], [address], 08/13/2021 17:07:12 08/10/19 22 08/09/2021 PROLA CTIN prolactin, total 30.00 NG/mL 4.79-2 3.30 high This assay was perfo rmed using [employer] ratio n reage nts and test kits. Value s obtai shay with other assay metho ds or kits canno t be used inter [facility] . Not Available [facility] (Lab) [address] [place], [address], 08/13/2021 17:07:13 08/10/19 22 08/09/2021 FSH, LH, ESTRA DIOL estradiol 274.0 pg/mL This assay was perfo rmed using [employer] ratio n reage nts and test kits. Value s obtai shay with other assay metho ds or kits canno t be used inter [facility] . Femal e Estra diol Range s: Folli cular phase 12.4- 233 pg/mL Ovula tion phase 41.0- 398 pg/mL Lutea l phase 22.3- 341 pg/mL Postm enopa usal< 5-138 pg/mL Healt hy Pregn ant Women 1st Trime ster1 54-32 43 pg/mL 2nd Trime ster1 561-2 1280 pg/mL 3rd Trime ster8 525-> 55061 pg/mL Not Available [facility] (Lab) [address] [place], [address], 08/13/2021 17:07:13 08/10/19 22 08/09/2021 FSH, LH, ESTRA DIOL FSH 9.8 mIU/m L This assay was perfo rmed using [employer] ratio n reage nts and test kits. Value s obtai shay with other assay metho ds or kits canno t be used inter [facility] . Femal es Folli cular : 3.5-1 2.5 mIU/m L Ovula tion: 4.7-2 1.5 mIU/m L Lutea l: 1.7-7 .7 mIU/m L Postm enopa use: 25.8- 134.8 mIU/m L Not Available [facility] (Lab) [address] [place], [address], 08/13/2021 17:07:13 08/10/19 22 08/09/2021 FSH, LH, ESTRA DIOL LH 27.4 mIU/m L This assay was perfo rmed using [employer] ratio n reage nts and test kits. Value s obtai shay with other assay metho ds or kits canno t be used inter [facility] . Femal es Mid-F ollic ular: 2.4-1 2.6 mIU/m L Mid-C ycle: 14.0- 95.6 mIU/m L Mid-L uteal : 1.0-1 1.4 mIU/m L Postm enopa use: 7.7-5 8.5 mIU/m L Not Available [facility] (Lab) [address] [facility] [facility], [place], [address], 08/13/2021 17:07:13 08/10/19 22 08/09/2021 HUMAN SEX HORMO NE GLORIA NG GLOBU KYRA sex hormone binding globulin 54.9 nmole s/L 16.8-1 25.2 Not Available [facility] (Lab) [address] [facility], [place], [address], 08/13/2021 17:07:14 08/10/19 22 08/09/2021 TESTO STERO NE, FREE( DIALY SIS) AND TOTAL (LC/M S/MS) testosterone , total 27 NG/dL 2-45 For addit ional infor che zaragoza e refer to http: //brianna means.que stdia gnost ics.c om/fa q/Tot alTnhan Santacruz [facility] (This link is being provi ded for infor isabela banks/ educa clinton l purpo ses only. ) This test was devel oped and its melony tical perfo rmanc e ricardo cteri stics have been deter mined by [facility]. It has not been clear ed or appro hanh by the FDA. This assay has been valid ated pursu ant to the CLIA regul ation s and is used for clini zbigniew purpo ses. Not Available [facility] (Lab) [address] [place], [address], 08/13/2021 17:07:14 08/10/19 22 08/09/2021 TESTO STERO NE, FREE( DIALY SIS) AND TOTAL (LC/M S/MS) testosterone , free 2.8 pg/mL 0.1-6. 4 This test was devel oped and its melony tical perfo rmanc e ricardo cteri stics have been deter mined by [facility]. It has not been clear ed or appro hanh by the FDA. This assay has been valid ated pursu ant to the CLIA regul ation s and is used for clini zbigniew purpo ses. Perfo rming Organ izati on Infor matio n: Site ID: [id number] Name: [facility] [place] Addre ss: [id number] [place] [address] Direc tor: Kalpana bullock M.D. Not Available [facility] (Lab) [address] [place], [address], 08/13/2021 17:07:14 08/10/19 22 08/09/2021 17-OH PROGE STERO NE 17-hydroxypr ogesterone, lc/MS/MS 92 NG/dL Adult Femal e Refer ence Range s for 17-Hy droxy proge stero ne: Pre-M enopa usal Mid Folli cular : 23-10 2 ng/dL Pre-M enopa usal Surge : 67-34 9 ng/dL Pre-M enopa usal Mid Lutea l: 139-4 31 ng/dL Postm enopa usal Phase : < or = 45 ng/dL Pregn frankie: First Trime ster: 78-45 7 ng/dL Secon d Trime ster: 90-35 7 ng/dL Third Trime ster: 144-5 78 ng/dL This test was devel oped and its melony tical perfo rmanc e ricardo cteri stics have been deter mined by [facility] [employer] Arnie Capbrett trano . It has not been clear ed or appro hanh by FDA. This assay has been valid ated pursu ant to the CLIA regul ation s and is used for clini zbigniew purpo ses. Perfo rming Organ izati on Infor matio n: Site ID: [id number] Name: [facility]Roman hols [facility] deirdre jones , Addre ss: [id number] [place] [address] Direc tor: Alice stinson MD,Ph D,HEATHER Not Available [facility] (Lab) [address] [facility] [facility] [facility], [place], [address], 08/13/2021 17:07:14 09/04/19 22 09/03/2021 pregn frankie test, urine HCG negati ve Not Available [facility] [address], [place], [address], 09/03/2021 12:17:01 09/21/19 22 09/20/2021 PROLA CTIN prolactin, total 13.60 NG/mL 4.79-2 3.30 This assay was perfo rmed using [facility] [employer] ratio n reage nts and test kits. Value s obtai shay with other assay metho ds or kits canno t be used inter garza e[facility] . Not Available [facility] [address] [facility], [place], [address], 09/21/2021 04:28:07 08/17/19 22 08/16/2021 US, pelvi s No observ ation record ed. [email or web address] [facility] [address], [place], [address], 08/16/2021 13:32:07 08/17/19 22 08/16/2021 US, trans vagin al No observ ation record ed. [email or web address] [facility] [address], [place], [address], 08/16/2021 13:32:18 08/17/19 22 08/16/2021 US, pelvi s No observ ation record ed. [email or web address] [facility] [address], [place], [address], 08/18/2021 11:32:31 Result Notes None recorded. Problems Name Problem SNOMED Code Status Onset Date Resolution Date Notes Provider Name and Address Organization Details Recorded Time Amenorrh ea 31423635 Completed 201111/03/2020 Absence of menstrua tion;Rec orded Elsewher e: No Locat ion: [facility] S ource: EHR Pin Puller roman: N Practi ce ID: 0001 Shaggy lable Time: 03:30:00 PM Nicole Washburn [facility] 10:38:02 Dysmenor keith [id number] Completed 201411/03/2020 Dysmenor keith;Rec orded Elsewher e: No Locat ion: [facility] S ource: EHR Pin Puller roman: N Practi ce ID: 0001 Shaggy lable Time: 09:30:00 AM Nicole Washburn [facility] 10:52:21 Dysfunct ional uterine bleeding Completed 201411/03/2020 Unspecif ied disorder s of menstrua tion and other abnormal bleeding from female genital tract;Pr actice ID: [id number] Nicole Washburn [facility] 10:40:27 Abnormal uterine bleeding [id number] 100 Completed 201611/03/2020 Other specifie d abnormal uterine and vaginal bleeding ;Practic e ID: 0001 Nicole Washburn [facility] 10:37:27 Contrace ptive sheath status [id number] Completed 201711/03/2020 Encounte r for routine checking of intraute rine contrace p dev;Prac yon ID: 0001 Niocle Washburn [facility] 09/07/202 1 10:39:00 Atypical squamous cells of undeterm ined signific ance on cervical Papanico laou smear 802594615 Completed 201811/03/2020 Atyp squam cell of undet signfc cyto smr crvx (ASC-US) ;Recorde d Elsewher e: No Locat ion: [facility] S ource: EHR Pin Puller roman: N Practi ce ID: 0001 Shaggy lable Time: 09:30:00 AM Nicole [facility] 10:38:58 Disorder of breast 08537837 Completed 201811/03/2020 Disorder of breast, unspecif ied;Freddy rded Elsewher e: No Locat ion: [facility] Olegti ce ID: 0001 Shaggy lable Time: 09:30:00 AM Nicole Washburn [facility] 10:39:39 Problem Notes None recorded. Procedures Surgical History Date Name Laterality Status Provider Name and Address Organization Details Recorded Time 12/01/19 22 TOTAL HYSTERECTOMY, LAPAROSCOPIC, WITH BILATERAL SALPINGECTOMY (SURG) completed Cheri Castro [facility] 12/01/2021 11:53:26 03/30/19 21 Date of Last Mammogram completed Nicole Washburn [facility] 11/03/2020 10:55:11 11/05/19 20 completed Nicole [facility] 11/03/2020 10:51:49 10/25/19 19 Date of Last Pap Smear completed Jeannette Hermosillo [facility] 10/28/2019 09:54:41 02/27/19 10 Hysteroscopy completed [facility] 11/03/2020 10:58:50 02/27/19 02 section completed Nicole [facility] 11/03/2020 10:58:35 01/01/19 97 section completed Nicole [facility] 11/03/2020 10:58:30 02/27/18 91 Appendectomy completed [facility] 11/03/2020 10:59:02 Appendectomy completed Nicole [facility] 08/09/2021 12:00:01 Hysteroscopy completed Herlinda Eyal [facility] 10/07/2019 14:33:29 Imaging Results None recorded. Procedure Notes None recorded. Medical Equipment None Reported. Allergies Allergen ID Allergen Name Allergen Category Reaction Reaction Severity Criticality Documentation Date Start Date Code Code System Note Provider Name and Address Organization Details Recorded Time 07447 Substance with sulfonami de structure and antibacte rial mechanism of action (substanc e) medicatio n Not available Not available Not available 02/14/2020 59690 8003 SNOMED Comme nt: [facility]at [facility]; Not Available [facility] 0 14:20:24 1650 Augmentin medicatio n Not available Not available Not available 10/07/2019 54364 2 [facility] 2 11:27:57 Medications Name Sig Start Date Stop Date Status Note LastModified by Organization Details LastModified Time Prometriu m 200 mg capsule take 1 capsule (200MG) by oral route every day for 30 days 07/03 completed Prescrib ed Elsewher e: No Locat ion: [facility] odify By: haroldo Ruffou nter DateTime : 06/05/19 13 09:00:00 AM Not Available Not Available Not Available cyclobenz aprine 10 mg tablet 06/28 completed Not Available Not Available Not Available Mirena 21 mcg/24 hr (up to 8 years) 52 mg intrauter ine device 12/08 completed Prescrib ed Elsewher e: Yes Loca tion: Vic [facility] odify By: rodrigo velasquezuntwayne DateTime : 11/15/19 18 08:30:00 AM Not Available Not Available Not Available methocarb chaitanya 500 mg tablet 06/28 completed Not Available Not Available Not Available neomycin- polymyxin -hydrocor t 3.5 mg/mL-10, 000 unit/mL-1 % ear solution 06/28 completed Not Available Not Available Not Available azithromy chris 250 mg tablet 06/28 completed Not Available Not Available Not Available nystatin 100,000 unit/gram topical ointment 10/27 completed Not Available Not Available Not Available hydrocodo ne 5 mg-acetam inophen 325 mg tablet active Not Available Not Available Not Available fluconazo le 200 mg tablet Take one tablet every other day x 3 doses. 10/27 completed Not Available Not Available Not Available meloxicam 15 mg tablet 06/28 completed Not Available Not Available Not Available ondansetr on HCl 4 mg tablet active Not Available Not Available No t Available prednison e 20 mg tablet 06/28 completed Not Available Not Available Not Available terconazo le 0.8 % vaginal cream Insert 1 applicat orful every day by vaginal route at bedtime for 3 days. 09/25 completed Not Available Not Available Not Available metronida zole 500 mg tablet 10/06 completed Not Available Not Available Not Available valacyclo vir 500 mg tablet 06/28 completed Not Available Not Available Not Available ciproflox acin 500 mg tablet 10/06 completed Not Available Not Available Not Available tramadol 50 mg tablet 06/28 completed Not Available Not Available Not Available nystatin- triamcino lone 100,000 unit/gram -0.1 % topical ointment APPLY TO THE AFFECTED AREA(S) BY TOPICAL ROUTE 2 TIMES PER DAY x 5 days 09/25 completed Not Available Not Available Not Available progester one 50 mg/mL intramusc ular oil inject 0.1 millilit er by intramus cular route every day 11/22 completed Prescrib ed Elsew e: Yes Loca tion: Vic menard [facility] Omer odcarroll By: amkuheloise Menard ncountwayne DateTime : 05/18/19 12 03:30:00 PM Not Available Not Available Not Available Metrogel Vaginal 0.75 % (37.5 mg/5 gram) insert 1 applicat orful by vaginal route for 5 nights at bedtime 11/14 completed Prescrib ed Elsewher e: No Locat ion: Vic menard [facility] odify By: rodrigo castro DateTime : 10/20/19 18 02:15:31 PM Not Available Not Available Not Available benzonata te 100 mg capsule 11/03 completed Not Available Not Available Not Available triamcino lone acetonide 0.1 % topical ointment 10/27 completed Not Available Not Available Not Available ibuprofen 400 mg tablet 06/28 completed Not Available Not Available Not Available ibuprofen 600 mg tablet 10/06 completed Not Available Not Available Not Available methylpre dnisolone 4 mg tablets in a dose pack 06/28 completed Not Available Not Available Not Available diazepam 5 mg tablet active Not Available Not Available Not Available amoxicill in 875 mg-potass ium clavulana te 125 mg tablet 10/06 completed Not Available Not Available Not Available Vitamins and Minerals tablet active Prescrib ed Elsewher e: Yes Loca tion: Vic menard [facility] odify By: efrain matt DateTime : 06/05/19 13 09:00:00 AM Not Available Not Available Not Available Ebony 0.35 mg tablet Take 1 tablet every day by oral route. 09/25 completed Not Available Not Available Not Available Vitals Date Recorded Body height Body mass index (BMI) Body weight Systolic And Diastolic Provider Name and Address Organization Details Last Updated DateTime 09/03/2021 156.21 cm 30.1 kg/m2 67330.96 g 111/74 mm[Hg] Lorena Middleton [facility] 09/03/2021 11:35:27 Date Recorded Body height Body mass index (BMI) Body weight Systolic And Diastolic Provider Name and Address Organization Details Last Updated DateTime 09/25/2021 156.21 cm 29.7 kg/m2 73472.78 g 126/84 mm[Hg] Marilyn Ness [facility] 09/25/2021 10:03:53 Date Recorded Body height Body mass index (BMI) Body weight Systolic And Diastolic Provider Name and Address Organization Details Last Updated DateTime 11/23/2021 156.21 cm 30.1 kg/m2 76360.96 g 109/70 mm[Hg] Lorena [facility] 11/23/2021 11:39:17 Date Recorded Body height Body mass index (BMI) Body weight Systolic And Diastolic Provider Name and Address Organization Details Last Updated DateTime 12/09/2021 156.21 cm 29.9 kg/m2 80130.37 g 129/70 mm[Hg] Lorena [facility] 12/09/2021 13:11:26 Social History Question Answer Notes LastModified by Organizat ion Details LastModified Time Tobacco Smoking Status Never Smoker Roscoe Gil clovis [facility] 12/09/2021 12:31:56 Do You Have An Advance Directive? No Information n ot available 11/03/2020 How Many Years Have You Consumed Alcohol? 25 Information not available 11/03/2020 Are You Blind Or Do You Have Difficulty Seeing? No Information n ot available 11/03/2020 What Is Your Level Of Caffeine Consumption? Occasional Information not available 11/03/2020 How Much Tobacco Do You Chew? None Information not available 11/03/2020 In The 14 Days Before Symptom Onset, Have You Had Close Contact With A Laboratory-confirm ed COVID-19 While That Case Was Ill? No Information n ot available 11/03/2020 In The 14 Days Before Symptom Onset, Have You Had Close Contact With A Person Who Is Under Investigation For COVID-19 While That Person Was Ill? No Information not available 11/03/2020 Have You Been To An Area Known To Be High Risk For COVID-19? No Information not available 11/03/2020 Are You Deaf Or Do You Have Serious Difficulty Hearing? No Information not available 11/03/2020 What Type Of Diet Are You Following? REGULAR Information n ot available 11/03/2020 What Is The Highest Grade Or Level Of School You Have Completed Or The Highest Degree You Have Received? [id number] Information not available 11/03/2020 Are There Any Guns Present In Your Home? Yes Information not available 11/03/2020 Do You Use Protection During Sex? No Information not available 11/03/2020 Do You Use Your Seat Belt Or Car Seat Routinely? Yes Information not available 11/03/2020 Do You Have Smoke And Carbon Monoxide Detectors In Your Home? Yes Information not available 11/03/2020 How Much Tobacco Do You Smoke? No Information not available 11/03/2020 Do You Use Sunscreen Routinely? Yes Information not available 11/03/2020 Have You Used IV Drugs? No Information not available 11/03/2020 Do You Have Difficulty Walking Or Climbing Stairs? No Information not available 12/09/2021 Sex: Unknown Functional Status Question Answer Note LastModified by Organizat ion Details LastModified Time Do you use any illicit or recreational drugs? No Information not available 11/03/2020 What is your level of alcohol consumption? Occasional [email or web address] Information not available 10/28/2019 Are you able to walk? YESWOREST Information not available 11/03/2020 Are you able to care for yourself independently? Yes [email or web address] Information not available 12/09/2021 What is your occupation? [employer] Information not available 11/03/2020 Do you have difficulty dressing, bathing, grooming, or toileting? No [email or web address] Information not available 12/09/2021 What is your exercise level? Moderate Information not available 11/03/2020 Mental Status Question Answer Note LastModified by Organization D etails LastModified Time Do you feel stressed (tense, restless, nervous, or anxious, or unable to sleep at night)? [id number] Information not available 11/03/2020 Family History Relationship Description Onset Age of this Age Resolved Age Notes LastModified by Organization Details LastModified Time Father Renal cell carcinoma [email or web address] Not available 2021 12:31:55 Father Malignant tumor of kidney [email or web address] Not available 2021 12:31:55 Mother Malignant neoplasm of lung [email or web address] Not available 2021 11:39:22 Mother Anemia Not available 11/23/2021 11:39:22 Mother Anemia [email or web address] Not available 12/09/2021 12:31:55 Mother Malignant neoplasm of lung [email or web address] Not available 2021 12:31:55 Unspecified Relation Malignant neoplasm of lung grandf ather Not available 11/23/2021 11:39:22 Unspecified Relation Infertile Aunt Not available 12/09 12:31:55 Unspecified Relation Malignant neoplasm of lung [email or web address] Not available 2021 12:31:55 Paternal Grandfather Malignant tumor of pharynx [email or web address] Not available 2021 12:31:55 Brother Genetic disease [email or web address] Not available 2021 12:31:55 Medical History Condition Response History of abnormal pap Y Anemia Y Polycystic ovary syndrome Y Infertility Y Gynecological History Statement/Question Response Abnormal Pap Y Flow Moderate Date of Last Mammogram 03/30/2020 Date of LMP 07/22/2021 N On BCP's at Conception? N STIs/STDs N Was last menstrual period normal Y HPV Vaccine N Colposcopy Duration of Flow (days) 9 Current Control Method None Age at First Child 27 Frequency of Cycle (Q days) 30 Sexually Active? Y Age of first menstrual cycle 17 Date of Last Pap Smear 10/24/2018 Sexual Problems? Y LMP Definite Desired Control Method None 11/05/2019 N Obstetrics History GPAL:G 2 P 0 0 0 2 Type Value Living 2 Total 2 Past Encounters Encounter ID Performer Location Encounter Start Date Encounter Closed Date Diagnosis/Indication Diagnosis SNOMED-CT Code Diagnosis ICD10 Code Diagnosis Note [id number] Nelda Roth [facility] [address] [place] [address] 10/07/2019 14:22:50 10/07/2019 15:21:57 Vaginitis 11843896 N76.0 Likely yeast on exam. Recently took high dose abx for diverticul itis. Diflucan sent Mycolog sent Time spent in visit is a total of 15 mins with at least 50% of visit consisting of counseling and review of plan of care. [id number] [facility] [address],[facility] [place] [address] 10/28/2019 09:49:33 10/28/2019 10:29:20 Gynecologic examination [id number] Z01.419 Suggested Calcium with Vitamin D 1200-1500m g daily. Patient advised to get an annual flu shot in the fall and she could obtain at [facility] or [facility] care clinic. Also to obtain TDap vaccinatio n if you have not had one in the last 10 years. Recommend yearly mammograms . Encouraged monthly self breast exams. Encourage safe sexual practices, to use condoms and limit partners if not already in a monogamous relationsh ip. Engage in daily exercise of low impact aerobic exercise 45-60 minutes 4-5 times weekly. Avoid tobacco and illicit drugs as well as using moderation with alcohol intake less than 1-2 8 oz beverages daily. This lifestyle behavior pattern will lead to less health conditions and longer life span. If BMI greater than 25 weight watchers or dietary consult advised. All questions have been answered. Patient appears to understand informatio n, but if you have any questions please call or respond to this email. Pap/HPV updated Last pap ASCUS with HR HPV Mammo ordered Has appt colonoscop y for diverticul itis. [id number] Nelda Roth , [facility] [address] [address] 11/03/2020 10:34:31 11/03/2020 12:22:57 Gynecologic examination [id number] Z01.419 Suggested Calcium with Vitamin D 1200-1500m g daily. Patient advised to get an annual flu shot in the fall and she could obtain at [facility] or [facility] care clinic. Also to obtain TDap vaccinatio n if you have not had one in the last 10 years. Recommend yearly mammograms . Encouraged monthly self breast exams. Encourage safe sexual practices, to use condoms and limit partners if not already in a monogamous relationsh ip. Engage in daily exercise of low impact aerobic exercise 45-60 minutes 4-5 times weekly. Avoid tobacco and illicit drugs as well as using moderation with alcohol intake less than 1-2 8 oz beverages daily. This lifestyle behavior pattern will lead to less health conditions and longer life span. If BMI greater than 25 weight watchers or dietary consult advised. All questions have been answered. Patient appears to understand informatio n, but if you have any questions please call or respond to this email. Pap/HPV updated Last pap ASCUS with HR HPV Mammo orderedCol on D 2019 Rec The book: the menopause manifesto by Dr. Nya Carpenter [id number] DIYA Purvis [place] [address],[facility] [place] [address] 06/28/2021 11:13:16 06/28/2021 13:41:53 Vaginitis [id number] N76.0 Vaginal itching and irritation x 2 daysVulvar irritation /redness, discharge suspicious for yeastVagin itis panel sentSTI testing declinedWi ll treat for yeast infectionR TC if symptoms persist past treatment Time spent with the patient was 25 minutes [id number] DIYA Purvis [place] [address],[place] [address] 08/09/2021 11:51:50 08/09/2021 12:41:06 Abnormal uterine bleeding [id number] 9100 N93.9 Irregular menses. Will have them monthly, but range from 2-10 days. Changing pads every 1-2 hours on heavier days. States menses have been like this her whole life. Has a hx of PCOS.Partn er with vasectomy for control, this is a steady partnerHad Mirena IUD in the past, was removed during hysterosco py D&C for AUB? She is unsure why she had this procedure, will look in [facility] records.Wolfe s left sided pelvic pains on and off, feels similar to when she had ovarian cyst in the past.We agreed to lab work and pelvic u/sWill discuss results at f/u appointmen t Time spent in visit is a total of 35 mins with at least 50% of visit consisting of counseling and review of plan of care. [id number] Alex Amezquita MD [place] [address],[place] [address] 08/16/2021 12:09:44 08/16/2021 13:29:40 Abnormal uterine bleeding [id number] 9100 N93.9 [id number] DIYA Purvis [place] [address] [address] 08/18/2021 10:40:36 08/18/2021 12:55:15 Abnormal uterine bleeding [id number] 9100 N93.9 Irregular menses. Will have them monthly, but range from 2-10 days. Changing pads every 1-2 hours on heavier days.Partn er with vasectomy for control, this is a steady partnerHad Mirena IUD in the past, was removed during hysterosco py D&C for AUB?Pelvic u/s showed possible thickened endometriu m, 23mm. Normal ovaries.We discussed given her episodes of prolonged bleeding, age 51, BMI 30.2, and possible thickened endometriu m, should move forward with an endometria l biopsy.She is about to start her menses, she will call at the end of her menses to schedule about 7 days after her menses is over. She will abstain from intercours e after her menses is over. Patient agrees.RTC for EMBIbuprof en 600mg, 1 hour prior to procedure. Time spent in visit is a total of 35 mins with at least 50% of visit consisting of counseling and review of plan of care. Irregular periods [id number] N92.6 Perimenopausal state [id number] Z78.0 [id number] Alex Amezquita MD [place] [address] [address] 09/03/2021 10:54:35 09/06/2021 14:52:54 Screening procedure [id number] Z13.9 Abnormal u terine bleeding [id number] 9100 N93.9 This patient is a 51-year-ol d female with menorrhagi a. She has longstandi ng very heavy bleeding. Her menses are regular. However, they require double protection . Patient has accidents, getting blood on her bedding and clothing. Is affected work. She changes a pad or tampon every hour. She leaks blood around the pad and tampon. This bleeding has a profound impact on her quality of life and her activities of daily living. We attempted endometria l biopsy today but we were unable to do it in the office. We discussed Hysterosco py D&C in the office and in the hospital. Talked about other treatment options. Talked about her failed treatment options in the past. She has tried medical therapy. It is failed multiple times. we discussed definitive treatment options. She would like to proceed with total laparoscop ic hysterecto my bilateral salpingo-o ophorectom y. . We should start with hysterosco py D&C and get an endometria l sample. She had hysterosco py D&C in 2018 with benign, normal tissue Of the endometriu m. She continued to have abnormal bleeding for the last 4 years. Patient will consider treatment options. Will start progestero ne only contracept ion at this time. Hopefully we control her bleeding. She needs to, again to discuss hysterosco py 2 D&C I spent over 40 minutes with the patient face-to-fa ce. More than 50% was counseling . She had a failed endometria l biopsy attempt. [id number] Alex Amezquita MD [place] [address],[place] [address] 09/25/2021 10:00:06 09/27/2021 17:31:44 Menorrhagia [id number] N92.0 this patient is a 51-year-ol d female who was previously seen discuss treatment options for menorrhagi a. She has severe menorrhagi a flexor quality of life and activities stated living. She also has pelvic pain. Her pelvic pain is left-sided . It is intermitte nt. It lasts hours. She rates an 8/10. She believes stool left ovary. We began talking about options. We were treating her with progestero ne only pills. The patient has tried multiple medical treatments for treatment of menorrhagi a. They have failed. We spent more than 40 minutes face-to-fa ce today. More than 50% was counseling . Talked about medical, and surgical treatment options. We agreed to perform endometria l ablation with hysterosco py. She also would like to remove the left ovary to relieve her pelvic pain. We agreed to a laparoscop ic left oophorecto my with bilateral salpingect arnold. We also will perform endometria l ablation at that time. I described these 3 procedures to the patient in detail. I showed her video of the endometria l ablation crow gutierrez is technique. We talked about laparoscop ic surgery and we talked about recovering complicati ons. She return for a preoperati ve visit and the informed consent process. Pain in pelvis [id number] R10.2 [id number] Alex Amezquita MD [place] [address] [address] 11/23/2021 11:34:24 11/24/2021 11:41:03 Pain in pelvis 39684338 R10.2 Menorrhagia [id number] N9 2.0 this patient is a 51-year-ol d female with severe menorrhagi a, pelvic pain, unwanted fertility. We have agreed to perform endometria l ablation with hysterosco py, laparoscop ic bilateral salpingect arnold and left oophorecto my. She understand s risks, benefits, and alternativ es. She has completed the informed consent process and is ready to proceed. [id number] Alex Amezquita MD [place] [address] [address] 12/02/2021 10:33:48 12/02/2021 10:40:38 [id number] Alex Amezquita MD [place] [address] [address] 12/09/2021 12:31:13 12/10/2021 14:17:47 Menorrhagia [id number] N92.0 This patient is a 51-year-ol d female who presents for follow-up on menorrhagi a. she underwent endometria l ablation and bilateral salpingect arnold with left oophorecto my. She is recovering normally. Her incisions are clean dry and intact. She will follow up as needed. Health Concerns Section Related Observation LastModified by Organization Detai ls LastModified Time None Recorded Concern Status LastModified by Organization Details LastModified Time None Recorded Advance Directives Directive N: Payers Insurance Date Sequence Insurance Name Policy Number Policy Fay Covered Member ID Fay Member ID Guarantor Name 12/06/2021 1 [place] 105 Rell Jeong [id number] Rell Jeong 12/08/2021 2 [facility] () Jeannette Jeong [id number] Rell Jeong Notes Date Note Type Note Provider Name and Address Organization Details Recorded Time 09/03/2021 text/html This patient is a 51-year-old female with menorrhagia. She has longstanding very heavy bleeding. Her menses are regular. However, they require double protection. Patient has accidents, getting blood on her bedding and clothing. Is affected work. She changes a pad or tampon every hour. She leaks blood around the pad and tampon. This bleeding has a profound impact on her quality of life and her activities of daily living. We attempted endometrial biopsy today but we were unable to do it in the office. We discussed Hysteroscopy D&C in the office and in the hospital. Talked about other treatment options. Talked about her failed treatment options in the past. She has tried medical therapy. It is failed multiple times. we discussed definitive treatment options. She would like to proceed with total laparoscopic hysterectomy bilateral salpingo-oophorecto my. . We should start with hysteroscopy D&C and get an endometrial sample. She had hysteroscopy D&C in 2018 with benign, normal tissue Of the endometrium. She continued to have abnormal bleeding for the last 4 years. Patient will consider treatment options. Will start progesterone only contraception at this time. Hopefully we control her bleeding. She needs to, again to discuss hysteroscopy 2 D&C Alex Amezquita MD [address], [place], [address], [facility] 09/04/2021 11:47:38 09/25/2021 text/html this patient is a 51-year-old female who was previously seen discuss treatment options for menorrhagia. She has severe menorrhagia flexor quality of life and activities stated living. She also has pelvic pain. Her pelvic pain is left-sided. It is intermittent. It lasts hours. She rates an 8/10. She believes stool left ovary. We began talking about options. We were treating her with progesterone only pills. The patient has tried multiple medical treatments for treatment of menorrhagia. They have failed. We spent more than 40 minutes [id number] today. More than 50% was counseling. Talked about medical, and surgical treatment options. We agreed to perform endometrial ablation with hysteroscopy. She also would like to remove the left ovary to relieve her pelvic pain. We agreed to a laparoscopic left oophorectomy with bilateral salpingectomy. We also will perform endometrial ablation at that time. I described these 3 procedures to the patient in detail. I showed her video of the endometrial ablation illustrating is technique. We talked about laparoscopic surgery and we talked about recovering complications. She return for a preoperative visit and the informed consent process. Alex Amezquita MD [address], [place], [address], [facility] 09/25/2021 22:15:24 11/23/2021 text/html This patient is a 51-year-old female with menorrhagia and left-sided pelvic pain. we have agreed to perform endometrial ablation, bilateral salpingectomy and left oophorectomy. The patient understands the procedure. The procedure was described to the patient in great detail. the patient also understands the risks. The risks were also explained in detail. She understands that injuries May occur during surgery. She understands these injuries can result in hospitalization, more surgery, and severe illness. She understands there is risk of hemorrhage and infection. Alex Amezquita MD [address], [place], [address], [facility] 11/23/2021 21:35:19 12/09/2021 text/html This patient is a 51-year-old female who presents for follow-up on menorrhagia. she underwent endometrial ablation and bilateral salpingectomy with left oophorectomy. She is recovering normally. Her incisions are clean dry and intact. She will follow up as needed. Alex Amezquita MD [address], [place], [address], [facility] 12/09/2021 18:20:20 OBGyn Episode Ob Episode Information Episode Created Date Number of Fetuses Patient Bloodtype Patient rh Status Prepregnancy Weight lbs Domestic Partner Domestic Partner Phone Father Name Hand Candy Dipper Status 10/07/19 20 1 CLOSED Fetus Data First Name Last Name Admitted to NICU Weight (g) Sex Living Outcome Pediatric Complications Fetus ID Race Codes Race Delivery Type 3674 Primary Gopal Calculation Initial Gopal Date Initial Exam [...] Post Complications Tubal Sterilization Discharge Date Comments 0 Discharge Information Feeding Method Contraceptive Method Maternal HG B and HCT Levels Ob Episode Information Episode Created Date Number of Fetuses Patient Bloodtype Patient rh Status Prepregnancy Weight lbs Domestic Partner Domestic Partner Phone Father Name Hand Candy Dipper Status 10/07/19 20 1 CLOSED Fetus Data First Name Last Name Admitted to NICU Weight (g) Sex Living Outcome Pediatric Complications Fetus ID Race Codes Race Delivery Type 3675 Primary Gopal Calculation Initial Gopal Date Initial Exam [...] Complications Tubal Sterilization Discharge Date Comments 2 Discharge Information Feeding Method Contraceptive Method Maternal HG B and HCT Levels
--- OUTSIDE RECORDS SUMMARY | 2024-09-22 17:55 | XMS_ITS | Encounter Summary ---
Author Organization [facility] Address [facility] [place] [address] Care Team Providers Care Client Integration Manager Name Role Phone Nelda Roth [employer]- Unavailable + [phone] Marium Pantoja NP Primary Care Provider + [phone] Vasu Hernandez MD Primary Care Provider [phone] Encounter Details Date Type Department Care Team ([facility] Contact Info) Description 11/22/2023 [employer] Message Enc [facility] Family & Internal Medicine [address] [address] [facility] Provider results Social History Tobacco Use Types Packs/Day Years [...] and Family Not on file 11/05/2019 Attends [employer] Not on file 11/04 Active Member [...] Recorded Patient Health Questionnaire-2 Score 0 05/15/2023 [facility] - Occupational [...] Sex Assigned at Female 04/26/2024 11:53 AM SCANNER OPERATOR Legal Sex Female 6:49 PM CDT Gender Identity Not on file Sexual Orientation Straight 04/07/2021 8: 35 AM SCANNER OPERATOR documented as of this encounter Plan of Treatment Upcoming Encounters Date Type Department Care Team (Late st Contact Info) Description 11/18/2024 7:00 AM CDT Office Visit [facility] Family & Internal Medicine - [place] [address] [place] [phone] [place] [address] [facility] [address] [place] [address] documented as of this encounter Visit Diagnoses Not on filedocumented in this encounter Additional Health Concerns Assessment Noted Time PHQ-9 Depression Total Score: 0 03/25/19 23 9:54 AM SCANNER OPERATOR documented as of this encounter Care Teams Client Integration Manager Relationship Specialty [place] [id number] [facility] [address] [place] [address] PCP - General Nurse Practitioner Family 04/18/23 12/06/23 [place] [address] [facility] [address] [place] [address] PCP - General INTERNAL MEDICINE 12/07/23 Nedla Roth NP- [address] [place] [phone] Nurse Practitioner NURSE PRACTITIONER 04/09/20 documented as of this encounter
[2024-09-22 17:57] VITALS: BP 128/66; PULSE 68; RESP 18; TEMP 36.4; O2SAT 100
[2024-09-22] MEDS: KETOROLAC (*BKC) 60 MG/2 ML VIAL IM (18:06)
== END 2024-09-22 18:19 | disposition home or self-care (01) ==
PROVIDERS: Emergency Provider Nurse Practitioner Family; PCP Internal Medicine
DX: K04.7 Periapical abscess without sinus (principal)
CPT/HCPCS: 96372; 99213; G0463; J1885